=== PATIENT | female | born 1935 | race Caucasian/White ===

== ENCOUNTER 2017-07-18 15:11 | Inpatient (IN) | payer MEDICARE ==
[2017-07-18 15:17] VITALS: BMI 37.6
[2017-07-18] MEDS ORDERED: HumaLOG 300 UNITS/3 ML VIAL SC PRN (18:01)
[2017-07-18] MEDS ORDERED: Dextrose 5% in Water 1,000 ML IV PRN (18:01)
[2017-07-18] MEDS ORDERED: Dextrose 50% Abboject 50 ML SYRINGE IVP PRN (18:01)
[2017-07-18] MEDS ORDERED: PROVENTIL INHALER 6.7 G (200 INHALATIONS) INH PRN ×2 (18:23→19:48)
[2017-07-18] MEDS: HYDROcodone/Acetaminophen 10/325 mg Tablet PO PRN ×2 (19:14→23:43)
[2017-07-18] MEDS ORDERED: HYDROcodone/Acetaminophen 10/325 mg Tablet PO PRN (19:48)
[2017-07-18] MEDS ORDERED: traMADol HCl 50 MG TAB PO PRN (19:48)
[2017-07-18] MEDS ORDERED: Ondansetron ODT 4 MG TAB PO PRN (19:50)
[2017-07-18] MEDS ORDERED: Loperamide HCl 2 MG CAP PO PRN (19:50)
[2017-07-18] MEDS ORDERED: Bisacodyl 10 MG SUPP PR PRN (19:50)
[2017-07-18] MEDS: traZODone HCl 50 MG TAB PO SCH (20:38)
[2017-07-18] MEDS: Simvastatin 20 MG TAB PO SCH (20:38)
[2017-07-18] MEDS: Docusate 100 MG CAP PO SCH (20:38)
[2017-07-18] MEDS: Milk Of Magnesia 30 ML UDCUP PO PRN (20:38)
[2017-07-18] MEDS: traMADol HCl 50 MG TAB PO PRN (20:41)
[2017-07-18] MEDS ORDERED: Simvastatin 20 MG TAB PO SCH (21:00)
[2017-07-18] MEDS ORDERED: traZODone HCl 50 MG TAB PO SCH (21:00)
--- NOTE | 2017-07-19 02:31 | HP ---
DATE OF ADMISSION: HISTORY OF PRESENT ILLNESS: Ms. Le is a very pleasant 81-year-old white female, who is stat us post total right knee by Dr. Salmeron. The patient postoperatively has had significant problems with pain and weakness. She was transferred to [facility] for continued physical therap y, occupational therapy, and medical management of her multiple medical problems. SUBJECTIVE: The patient states she has no complaints except she just hurts. She states that Dr. Beti wang said that is going to hurt because she had a really bad knee and it started hurting before she go t it fixed. PAST MEDICAL HISTORY: 1. COPD. 2. Congestive heart failure. 3. Diabetes type 2. 4. GERD. 5. Hyperlipidemia. 6. Hypertension. 7. Osteoarthritis. 8. Eye problems. 9. Coronary artery disease. 10. AVR by Dr. De La Torre. PAST SURGICAL HISTORY: 1. Tonsillectomy. 2. Appendectomy. 3. in 1970. 4. Cataract surgery in 2007. 5. Left ear skin cancer in 2015. 6. Aortic valve replacement with cardiac stenting by Dr. De La Torre in 09/05/2016. ALLERGIES: Reveal the patient has no known drug allergies. PRESENT MEDICATIONS: Reveal the patient should be on: 1. Aspirin 325 one pill twice a day. 2. Verapamil 80 mg b.i.d. 3. Losartan 25 mg every day. 4. Furosemide 40 mg b.i.d. 5. Simvastatin 20 mg at bedtime. 6. CoQ10 of 50 daily. 7. Amaryl 2 mg once a day. 8. Meloxicam 15 mg daily. 9. Anoro Ellipta once a day. 10. Tramadol 50 mg 1 or 2 pills with Tylenol 500 q.6 hours. 11. Trazodone 50 mg at bedtime. 12. Omeprazole 20 mg daily. 13. Stool softeners p.r.n. 14. Multivitamin. 15. Iron. 16. Equate Allergy. FAMILY HISTORY: Reveals the patient's father at the age of 73 of prostate cancer, kidney probl ems, hypertension, and stroke. The patient's mother at the age of 75. She has congestive hear t failure and heart disease. Siblings had one at age 6464 years old, congestive heart failur e and coronary artery disease. Other had hypertension and heart disease. The patient has 3 sons an d 2 daughters. Sons are alive and healthy. One of the daughters has diabetes. SOCIAL HISTORY: Reveals the patient does not smoke, does not use any alcohol, no drugs. She drinks coffee and Coke every day. She is retired and . She has 3 sons and 2 daughters. She lives alone. She has 2 cats. She walks daily. REVIEW OF SYSTEMS: The patient denies fever, chills, sweats, weight change, headaches, but does com plain of significant right knee pain. Ear, nose and throat are negative for change in her hearing, cold, congestion, or runny nose. The patient's respiratory status is negative for cough, cold, neil estion, or wheezing. The patient's cardiovascular status is negative for swelling, chest pain, paro xysmal dyspnea, dyspnea on exertion, racing or irregular heartbeats. Gastrointestinal manrique, the pat ient is negative for nausea, vomiting, diarrhea, constipation, black, bloody or tarry stools. Genit ourinary, the patient denies nocturia, hematuria, dysuria, urgency or frequency. Musculoskeletal wi se, the patient's incision looks good. She has significant right-sided knee pain, but that is posto p. The patient denies any rashes, skin lesions or jaundice. PHYSICAL EXAMINATION: GENERAL: This is a well-developed, well-nourished, slightly obese white female, in no apparent dist ress at this time. HEENT: Reveals normocephalic, nontraumatic cranium. Pupils are equally round and reactive. Extrao cular movements intact. Nose and throat are slightly dry. NECK: Supple, without masses, nodes or bruits. CHEST: Clear to auscultation. A 1/6 systolic ejection murmur is noted. ABDOMEN: Obese, soft, nontender, without organomegaly. Normal bowel sounds are noted in all 4 quad rants. No rebound or guarding is noted. GENITOURINARY: Deferred. EXTREMITIES: Reveal no clubbing, cyanosis with right knee slightly swelling and now bandaged. The patient also has right shoulder pain noted to be not rotator cuff. ASSESSMENT: 1. Status post total right knee by Dr. Salmeron. 2. Diabetes type 2. 3. History of congestive heart failure. 4. Chronic obstructive pulmonary disease. 5. Gastroesophageal reflux disease. 6. Hypertension. 7. Hyperlipidemia. 8. Osteoarthritis. 9. Coronary artery disease. 10. Aortic valve replacement. PLAN: 1. Follow blood pressure closely. 2. Follow the patient's Accu-Cheks before meals and at bedtime. 3. Follow the patient closely for signs and symptoms of congestive heart failure. 4. Physical therapy and occupational therapy. 5. Pain management.
[2017-07-19] MEDS: HYDROcodone/Acetaminophen 10/325 mg Tablet PO PRN ×4 (05:18→21:58)
[2017-07-19] MEDS: Furosemide 40 MG TAB PO SCH ×2 (06:22→14:23)
[2017-07-19] MEDS: Ferrous Sulfate 325 MG TAB PO SCH (07:55)
[2017-07-19] MEDS: Glimepiride 2 MG TAB PO SCH (07:55)
[2017-07-19] MEDS: Aspirin 325 mg Enteric Coated Tablet PO SCH ×2 (07:55→16:13)
[2017-07-19] MEDS ORDERED: Glimepiride 2 MG TAB PO SCH (08:00)
[2017-07-19] MEDS: Losartan Potassium 25 MG TAB PO SCH (08:16)
[2017-07-19] MEDS: Loratadine 10 MG TAB PO SCH (08:16)
[2017-07-19] MEDS: Docusate 100 MG CAP PO SCH ×2 (08:16→21:58)
[2017-07-19] MEDS: Meloxicam 7.5 MG TAB PO SCH (08:16)
[2017-07-19] MEDS: [UNRECOGNIZED DRUG - OTHER] INH SCH (08:17)
[2017-07-19] MEDS: Ubidecarenone 50 MG CAP PO SCH (08:18)
[2017-07-19] MEDS: [UNRECOGNIZED DRUG - OTHER] PO SCH (08:18)
[2017-07-19] MEDS: traMADol HCl 50 MG TAB PO PRN ×2 (08:24→16:13)
[2017-07-19] MEDS ORDERED: IRON PO SCH (09:00)
[2017-07-19] MEDS ORDERED: DOCUSATE SODIUM PO SCH (09:00)
[2017-07-19] MEDS ORDERED: Non-Formulary Item 1 EACH (Omeprazole [Prilosec] 20 MG) PO SCH (09:00)
[2017-07-19] MEDS ORDERED: Furosemide 40 MG TAB PO SCH (09:00)
[2017-07-19] MEDS ORDERED: Non-Formulary Item 1 EACH (Umeclidinium Brm/Vilanterol Tr [Anoro Ellipta] 1 INH) IH SCH (09:00)
[2017-07-19] MEDS ORDERED: MELOXICAM 15 MG PO SCH (09:00)
[2017-07-19] MEDS ORDERED: [UNRECOGNIZED DRUG - OTHER] PO SCH (09:00)
[2017-07-19] MEDS ORDERED: Non-Formulary Item 1 EACH (Cetirizine Hcl [Zyrtec] 10 MG) PO SCH (09:00)
[2017-07-19] MEDS ORDERED: VERAPAMIL HCL PO SCH (09:00)
[2017-07-19] MEDS ORDERED: Ubidecarenone 50 MG CAP PO SCH (09:00)
[2017-07-19] MEDS ORDERED: MULTIVIT PO SCH (09:00)
[2017-07-19] MEDS ORDERED: Losartan Potassium 25 MG TAB PO SCH (09:00)
[2017-07-19] MEDS ORDERED: Docusate Sodium 100 MG/10 ML UDCUP PO SCH (09:00)
[2017-07-19] MEDS ORDERED: FERROUS SULFATE 142 MG PO SCH (09:00)
[2017-07-19] MEDS: Simvastatin 20 MG TAB PO SCH (21:57)
[2017-07-19] MEDS: traZODone HCl 50 MG TAB PO SCH (21:58)
--- NOTE | 2017-07-19 23:34 | PRG ---
DATE OF ADMISSION: 07/18/2017 DATE OF SERVICE: 07/19/2017 HISTORY OF PRESENT ILLNESS: Ms. Le is a very pleasant 81-year-old white female that had a t otal right knee done by Dr. Salmeron. Postoperatively, she had significant pain and weakness. She does have chronic pain in her legs and back, is on tramadol for that. She ended up being placed on Nor[place] o 3 times a day along with tramadol. The patient was stabilized and transferred to [facility] for physical therapy, occupational therapy, and medical management of multiple medical pr oblems. SUBJECTIVE: The patient states she is feeling better today. She did walk quite a bit probably 50 f eet. She has no complaints about the food here. PHYSICAL EXAMINATION: VITAL SIGNS: Reviewed blood pressure this morning 135/63, pulse 91, respirations 22, O2 sat 98%. GENERAL: This is a well-developed, well-nourished, obese white female in no apparent distress at th is time. HEENT: Reveals normocephalic, nontraumatic cranium. Pupils are equally round and reactive. Extrao cular movements are intact. Nose and throat are moist today. NECK: Supple, without masses, nodes or bruits. CHEST: Clear to auscultation. No rales, rhonchi, or wheezes are heard. No cough is noted. HEART: Reveals a regular rate and rhythm without murmurs, gallops or rubs. A 1/6 systolic ejection murmur is noted. ABDOMEN: Obese, soft, nontender, without organomegaly. Normal bowel sounds are noted in all 4 quad rants. No rebound or guarding is noted. : Deferred. EXTREMITIES: Reveal no clubbing, cyanosis, or edema. Patient's knee is still wrapped. Patient als o complains of right shoulder pain. LABORATORY DATA: Reveal fasting sugar this morning 79, before lunch 152, before supper 65. ASSESSMENT: 1. Total right knee by Dr. Salmeron. 2. Diabetes type 2, stable. 3. History of congestive heart failure. 4. Chronic obstructive pulmonary disease. 5. Gastroesophageal reflux disease. 6. Hypertension. 7. Hyperlipidemia. 8. Osteoarthritis. 9. Coronary artery disease. 10. Aortic valve replacement. 11. Generalized weakness. PLAN: 1. Follow the patient's Accu-Cheks a.c. and at bedtime. 2. Follow the patient's blood pressure closely. 3. Monitor the patient's signs and symptoms of congestive heart failure. 4. Continue physical therapy and occupational therapy. 5. Continue pain management. 6. Deep venous thrombosis prophylaxis. 7. Decubitus precautions. 8. Peptic ulcer prophylaxis.
[2017-07-20] MEDS: traMADol HCl 50 MG TAB PO PRN ×3 (02:43→22:03)
[2017-07-20] MEDS: Furosemide 40 MG TAB PO SCH ×2 (06:07→13:34)
[2017-07-20] MEDS: Ferrous Sulfate 325 MG TAB PO SCH (07:35)
[2017-07-20] MEDS: Aspirin 325 mg Enteric Coated Tablet PO SCH ×2 (07:35→17:32)
[2017-07-20] MEDS: HYDROcodone/Acetaminophen 10/325 mg Tablet PO PRN ×3 (07:35→17:39)
[2017-07-20] MEDS: Glimepiride 2 MG TAB PO SCH (07:35)
[2017-07-20] MEDS: Docusate 100 MG CAP PO SCH ×2 (08:13→22:02)
[2017-07-20] MEDS: Meloxicam 7.5 MG TAB PO SCH (08:13)
[2017-07-20] MEDS: Losartan Potassium 25 MG TAB PO SCH (08:13)
[2017-07-20] MEDS: Loratadine 10 MG TAB PO SCH (08:13)
[2017-07-20] MEDS: [UNRECOGNIZED DRUG - OTHER] PO SCH (08:15)
[2017-07-20] MEDS: Ubidecarenone 50 MG CAP PO SCH (08:15)
[2017-07-20] MEDS: [UNRECOGNIZED DRUG - OTHER] INH SCH (08:15)
[2017-07-20] MEDS: Simvastatin 20 MG TAB PO SCH (22:02)
[2017-07-20] MEDS: traZODone HCl 50 MG TAB PO SCH (22:03)
--- NOTE | 2017-07-20 22:32 | PRG ---
DATE OF SERVICE: 07/20/2017 DATE OF ADMISSION: 07/18/2017 Ms. Le is a very pleasant 81-year-old white female that had a total right knee done at [facility] by Dr. Salmeron. Postoperatively, she had significant weakness and pain. She was starte d on [place] 3 times a day along with tramadol and was transferred to [facility] for p hysical therapy, occupational therapy, and pain management at the swing bed system. SUBJECTIVE: The patient states she had a good day today. She states she walked a little bit. She continues to have quite a bit of pain, but it seems to be gradually getting better. PHYSICAL EXAMINATION: VITAL SIGNS: Reveal blood pressure is 134/61, pulse 77-80, respirations 18-20, O2 sat 97-98%. T-ma x is 98.3. GENERAL: This is a well-developed, well-nourished, slightly obese white female, in no apparent dist ress at this time. HEENT: Reveals normocephalic, nontraumatic cranium. Pupils are equally round and reactive. Extrao cular movements intact. Nose and throat are moist. NECK: Supple, without masses, nodes or bruits. CHEST: Clear to auscultation. Slightly distant. No rales, rhonchi, wheezes or cough is heard. CARDIOVASCULAR: Reveals a regular rate and rhythm without gallops or rubs. A 1/6 systolic ejection murmur is noted. ABDOMEN: Obese, soft, nontender, without organomegaly, normal bowel sounds are noted. No rebound o r guarding is noted. GENITOURINARY: Deferred. EXTREMITIES: Reveal no clubbing, cyanosis or edema. Patient's knee continued to be wrapped. She s tates that she is feeling better. Is not as irritated, is not as painful when she moves. She does have some pain still on her right shoulder. ASSESSMENT: 1. Total right knee done at [facility] by Dr. Salmeron. 2. Diabetes type 2, stable. 3. History of congestive heart failure. 4. Chronic obstructive pulmonary disease. 5. Gastroesophageal reflux disease. 6. Hypertension. 7. Hyperlipidemia. 8. Osteoarthritis. 9. Coronary artery disease. 10. Aortic valve replacement. 11. Generalized weakness. PLAN: 1. Follow the patient's blood pressure closely. 2. Monitor the patient's sugars with Accu-Cheks a.c. and at bedtime. 3. Monitor the patient for signs and symptoms of congestive heart failure. 4. Continue pain management. 5. Decubitus precautions. 6. Stress ulcer prophylaxis. 7. Deep venous thrombosis prophylaxis. 8. Pain management. 9. Continue physical therapy and occupational therapy.
[2017-07-21] MEDS: HYDROcodone/Acetaminophen 10/325 mg Tablet PO PRN ×4 (02:40→20:31)
[2017-07-21] MEDS: Furosemide 40 MG TAB PO SCH ×2 (05:46→14:28)
[2017-07-21] MEDS: traMADol HCl 50 MG TAB PO PRN ×2 (06:58→23:32)
[2017-07-21] MEDS: Aspirin 325 mg Enteric Coated Tablet PO SCH ×2 (07:38→17:20)
[2017-07-21] MEDS: Glimepiride 2 MG TAB PO SCH (07:38)
[2017-07-21] MEDS: Ferrous Sulfate 325 MG TAB PO SCH (07:38)
[2017-07-21] MEDS: Docusate 100 MG CAP PO SCH ×2 (08:37→20:31)
[2017-07-21] MEDS: Losartan Potassium 25 MG TAB PO SCH (08:37)
[2017-07-21] MEDS: Meloxicam 7.5 MG TAB PO SCH (08:38)
[2017-07-21] MEDS: [UNRECOGNIZED DRUG - OTHER] PO SCH (08:39)
[2017-07-21] MEDS: Ubidecarenone 50 MG CAP PO SCH (08:39)
[2017-07-21] MEDS: Loratadine 10 MG TAB PO SCH (08:39)
[2017-07-21] MEDS: Milk Of Magnesia 30 ML UDCUP PO PRN (08:40)
[2017-07-21] MEDS: [UNRECOGNIZED DRUG - OTHER] INH SCH (09:20)
[2017-07-21] MEDS: traZODone HCl 50 MG TAB PO SCH (20:31)
[2017-07-21] MEDS: Simvastatin 20 MG TAB PO SCH (20:31)
--- NOTE | 2017-07-22 01:22 | PRG ---
DATE OF SERVICE: 07/21/2017 HISTORY OF PRESENT ILLNESS: Ms. Le is a very pleasant 81-year-old white female, who had a t otal right knee done at [facility] by Dr. Salmeron. She complains of quite a bit of pain and w eakness and therefore she was transferred to [facility] for physical therapy, occupa tional therapy, and pain management in the swing bed system. SUBJECTIVE: The patient states she had a really good day today. She states she is walking a little bit and she walked around the nurses' station and to the nurses' station. She states she continues to have pain, but it is much improved. She is ready for physical therapy tomorrow. OBJECTIVE: VITAL SIGNS: Reveal blood pressure is 124/60, pulse 77 to 80, respirations 18 to 20, O2 sat 96% to 98%, T-max 98.4. GENERAL: This is a well-developed, well-nourished, slightly obese white female, in no apparent dist ress at this time. HEENT: Reveals normocephalic, nontraumatic cranium. Pupils are equally round and reactive. Extrao cular movements are intact. Nose and throat are slightly dry and clear. NECK: Supple, without masses, nodes or bruits. CHEST: Clear to auscultation. No rales, rhonchi or wheezes are heard. CARDIOVASCULAR: Reveals a regular rate and rhythm without murmurs, gallops or rubs. A 1/6 systolic ejection murmur is noted. ABDOMEN: Obese, soft, nontender, without organomegaly. Normal bowel sounds are noted. No rebound or guarding is noted. GENITOURINARY: Deferred. EXTREMITIES: Reveal right knee looks very good and slightly red, minimally warm, very good range of motion and not hurting her much at all. ASSESSMENT: 1. Total right knee done at [facility] by Dr. Salmeron. 2. Diabetes type 2, stable. 3. History of congestive heart failure. 4. Chronic obstructive pulmonary disease. 5. Gastroesophageal reflux disease. 6. Hypertension. 7. Hyperlipidemia. 8. Osteoarthritis. 9. Coronary artery disease. 10. History of aortic valve replacement. 11. Generalized weakness. PLAN: 1. Continue to follow the patient's blood pressure closely. 2. Monitor the patient's sugars with Accu-Cheks before meals and at bedtime. 3. Monitor the patient for signs and symptoms of congestive heart failure. 4. Continue pain management and wean as able. 5. Continue decubitus precautions. 6. Stress ulcer prophylaxis. 7. Deep venous thrombosis prophylaxis. 8. Pain management. 9. Continue physical therapy and occupational therapy.
[2017-07-22] MEDS: HYDROcodone/Acetaminophen 10/325 mg Tablet PO PRN ×3 (05:20→17:18)
[2017-07-22] MEDS: Furosemide 40 MG TAB PO SCH ×2 (05:20→14:33)
[2017-07-22] MEDS: Meloxicam 7.5 MG TAB PO SCH (08:22)
[2017-07-22] MEDS: Loratadine 10 MG TAB PO SCH (08:22)
[2017-07-22] MEDS: Docusate 100 MG CAP PO SCH ×2 (08:22→21:05)
[2017-07-22] MEDS: Ubidecarenone 50 MG CAP PO SCH (08:22)
[2017-07-22] MEDS: traMADol HCl 50 MG TAB PO PRN ×3 (08:23→21:04)
[2017-07-22] MEDS: Ferrous Sulfate 325 MG TAB PO SCH (08:23)
[2017-07-22] MEDS: Glimepiride 2 MG TAB PO SCH (08:23)
[2017-07-22] MEDS: Losartan Potassium 25 MG TAB PO SCH (08:23)
[2017-07-22] MEDS: Aspirin 325 mg Enteric Coated Tablet PO SCH ×2 (08:23→17:18)
--- NOTE | 2017-07-22 10:18 | PRG ---
DATE OF SERVICE: 07/22/2017 HISTORY OF PRESENT ILLNESS: Ms. Le is a very pleasant 81-year-old white female that had a t otal right knee done by Dr. Salmeron. She was transferred to [facility] for physical th erapy, occupational therapy, and pain management and swing bed system. SUBJECTIVE: The patient states she is doing well today. She started to get physical therapy. The nurse does complain that she hollers a lot when she had just a little bit of pain. She did walk lesa und the nurses station with a couple episodes of rest. Her balance is getting better and she is doi ng significantly better. OBJECTIVE: VITAL SIGNS: Today reveal blood pressure is 132/60, pulse 77 to 82, respirations 18-20, O2 sat 94%- 98% on room air, temperature max is 98.4. GENERAL: This is a well-developed, well-nourished, obese white female in no apparent distress at is time. HEENT: Reveals normocephalic, nontraumatic cranium. Pupils are equally round and reactive. Extrao cular movements intact. Nose and throat are slightly dry, but clear. NECK: Supple, without masses, nodes or bruits. CHEST: Clear to auscultation. No rales, rhonchi, wheezes or cough is heard. CARDIOVASCULAR: Heart reveals a regular rate and rhythm without gallops or rubs. There is a 1/6 sy stolic ejection murmur is still heard. ABDOMEN: Obese, soft, nontender, without organomegaly. Normal bowel sounds are noted in all 4 quad rants. No rebound or guarding is noted. GENITOURINARY: Deferred. EXTREMITIES: Reveal no clubbing, cyanosis or edema. The patient's right knee continues to look rula y good, it is not red, it is not hot, it is not draining, it is doing well. ASSESSMENT: 1. Total right knee postop by Dr. Salmeron at [facility]. 2. Diabetes type 2, stable. 3. History of congestive heart failure. 4. Chronic obstructive pulmonary disease. 5. Gastroesophageal reflux disease. 6. Hypertension. 7. Hyperlipidemia. 8. Osteoarthritis. 9. Coronary artery disease. 10. History of aortic valve replacement. 11. Generalized weakness. PLAN: 1. Continue to monitor the patient's blood pressure closely. 2. Continue to monitor the patient for signs and symptoms of congestive heart failure. 3. Continue to monitor the patient's sugars with Accu-Cheks a.c. and at bedtime. 4. Continue pain management, wean opioids is able. 5. Continue decubitus precautions. 6. Stress ulcer prophylaxis. 7. Deep venous thrombosis prophylaxis. 8. Pain management. 9. Continue physical therapy and occupational therapy.
[2017-07-22] MEDS: [UNRECOGNIZED DRUG - OTHER] INH SCH (10:51)
[2017-07-22] MEDS: [UNRECOGNIZED DRUG - OTHER] PO SCH (10:51)
[2017-07-22] MEDS: traZODone HCl 50 MG TAB PO SCH (21:05)
[2017-07-22] MEDS: Simvastatin 20 MG TAB PO SCH (21:05)
[2017-07-23] MEDS: Furosemide 40 MG TAB PO SCH ×2 (06:04→14:07)
[2017-07-23] MEDS: HYDROcodone/Acetaminophen 10/325 mg Tablet PO PRN ×4 (08:31→21:40)
[2017-07-23] MEDS: Losartan Potassium 25 MG TAB PO SCH (08:33)
[2017-07-23] MEDS: Glimepiride 2 MG TAB PO SCH (08:33)
[2017-07-23] MEDS: Ubidecarenone 50 MG CAP PO SCH (08:33)
[2017-07-23] MEDS: Aspirin 325 mg Enteric Coated Tablet PO SCH ×2 (08:34→18:29)
[2017-07-23] MEDS: Ferrous Sulfate 325 MG TAB PO SCH (08:34)
[2017-07-23] MEDS: Docusate 100 MG CAP PO SCH ×2 (08:34→21:40)
[2017-07-23] MEDS: Meloxicam 7.5 MG TAB PO SCH (08:34)
[2017-07-23] MEDS: Loratadine 10 MG TAB PO SCH (08:34)
[2017-07-23] MEDS: [UNRECOGNIZED DRUG - OTHER] PO SCH (08:39)
--- NOTE | 2017-07-23 10:17 | PRG ---
DATE OF SERVICE: 07/23/2017 DATE OF ADMISSION: 07/18/2017 HISTORY OF PRESENT ILLNESS: Ms. Le is a very pleasant 81-year-old white female that had a t otal knee done by Dr. Salmeron. She was transferred to [facility] to continue her thera py. Her main problem has been pain, it is gradually getting better. She is in the swing system her e and she will continue physical therapy and occupational therapy. SUBJECTIVE: The patient states she is doing better. Her knee hurts quite a bit when she first gets up. By the time she walked at nurse's station, the pain has gone away and she is a lot better. St ates her balance is getting better. She did walk around the nurse's station once but had to stop on ce to rest. PHYSICAL EXAMINATION: VITAL SIGNS: Reveal blood pressure this morning is 127/61, pulse 81-92, respirations 17-20, O2 sat 94%-97% on room air, T-max is 97.9. GENERAL: This is a well-developed, well-nourished, obese white female in no apparent distress at th is time. HEENT: Reveals normocephalic, nontraumatic cranium. Pupils are equally round and reactive. Extrao cular movements intact. Nose and throat are moist. NECK: Supple, without masses, nodes or bruits. CHEST: Clear to auscultation. No rales, rhonchi or wheezes are heard. HEART: Reveals a regular rate and rhythm without murmurs, gallops or rubs. A 1/6 systolic ejection murmur is heard. ABDOMEN: Obese, soft, and nontender. Normal bowel sounds are noted. No rebound or guarding is not ed. : Exam is deferred. EXTREMITIES: Reveal no clubbing, cyanosis or edema. The right knee continues to be slightly swolle n, but not red, not hot, and doing very well. IMPRESSION: 1. Total right knee. She is postop from Dr. Salmeron at [facility]. 2. History of congestive heart failure. 3. Diabetes type 2. 4. Chronic obstructive pulmonary disease. 5. Gastroesophageal reflux disease. 6. Hypertension. 7. Hyperlipidemia. 8. Osteoarthritis. 9. Coronary artery disease. 10. History of aortic valve replacement in the past. 11. Generalized weakness. PLAN: 1. Continue to monitor the patient for signs and symptoms of congestive heart failure. 2. Monitor the patient's sugars with Accu-Cheks a.c. and at bedtime. 3. Monitor the patient's blood pressure closely. 4. Continue pain management, but wean the opioids as able. 5. Continue decubitus precautions. 6. Continue DVT thrombosis prophylaxis. 7. Stress ulcer prophylaxis. 8. Pain management. 9. Continue physical therapy and occupational therapy.
[2017-07-23] MEDS: traMADol HCl 50 MG TAB PO PRN (12:15)
[2017-07-23] MEDS: traZODone HCl 50 MG TAB PO SCH (21:39)
[2017-07-23] MEDS: Simvastatin 20 MG TAB PO SCH (21:40)
[2017-07-24] MEDS: Furosemide 40 MG TAB PO SCH ×2 (05:53→15:38)
[2017-07-24] MEDS: Glimepiride 2 MG TAB PO SCH (07:30)
[2017-07-24] MEDS: Meloxicam 7.5 MG TAB PO SCH (08:11)
[2017-07-24] MEDS: Ubidecarenone 50 MG CAP PO SCH (08:11)
[2017-07-24] MEDS: Docusate 100 MG CAP PO SCH ×2 (08:11→21:06)
[2017-07-24] MEDS: Losartan Potassium 25 MG TAB PO SCH (08:12)
[2017-07-24] MEDS: Aspirin 325 mg Enteric Coated Tablet PO SCH ×2 (08:12→17:19)
[2017-07-24] MEDS: Loratadine 10 MG TAB PO SCH (08:13)
[2017-07-24] MEDS: [UNRECOGNIZED DRUG - OTHER] PO SCH (08:13)
[2017-07-24] MEDS: Ferrous Sulfate 325 MG TAB PO SCH (08:13)
[2017-07-24] MEDS: HYDROcodone/Acetaminophen 10/325 mg Tablet PO PRN ×3 (08:17→21:04)
[2017-07-24] MEDS ORDERED: ANORO ELLIPTA INHALER INH SCH (10:45)
[2017-07-24] MEDS: traMADol HCl 50 MG TAB PO PRN (11:27)
--- NOTE | 2017-07-24 13:50 | PRG ---
DATE OF SERVICE: 07/24/2017 HISTORY OF PRESENT ILLNESS: The patient is a 81-year-old, very pleasant, obese white female that webb d a total knee done by Dr. Salmeron. She was transferred to [facility] for physical the rapy and occupational therapy to increase her strength and stamina so she can walk when she goes surya e. SUBJECTIVE: The patient states she is doing very well. She walked around the nurses' station. She rested for a while, walked towards the outside, a little bit on the outside and came back and did a couple of steps. She has no complaints today. PHYSICAL EXAMINATION: VITAL SIGNS: Blood pressure is 128/63, pulse 80-82, respirations 20, O2 sat 96% on room air, temper ature 97.4. GENERAL: This is a well-developed, well-nourished, very pleasant white female in no apparent distre ss at this time. HEENT: Reveals normocephalic, nontraumatic cranium. Pupils are equally round and reactive. Extrao cular movements intact. Nose and throat are slightly dry. NECK: Supple, without masses, nodes or bruits. LUNGS: Chest clear to auscultation. No rales, rhonchi or wheezes are heard. CARDIOVASCULAR: Reveals a regular rate and rhythm without murmurs, gallops or rubs. There is a 1/6 systolic ejection murmur is noted. ABDOMEN: Obese, soft, nontender, without organomegaly. Normal bowel sounds are noted. No rebound or guarding is noted. GENITOURINARY: Deferred. EXTREMITIES: Reveal the right knee continues to be slightly swollen, not red, not hot, and doing ve ry well. She states it only hurts when she gets started and then after she walks it is much improve d. IMPRESSION: 1. Total right knee postop by Dr. Salmeron [facility]. 2. History of congestive heart failure. 3. Diabetes type 2. 4. Chronic obstructive pulmonary disease. 5. Gastroesophageal reflux disease. 6. Hypertension. 7. Hyperlipidemia. 8. Osteoarthritis. 9. History of aortic valve replacement in the past. 10. Coronary artery disease. 11. Generalized weakness. PLAN: 1. Continue to monitor the patient's sugars with Accu-Cheks a.c. and at bedtime. 2. Monitor the patient for signs and symptoms of congestive heart failure. 3. Monitor the patient's blood pressure closely. 4. Continue pain management. Wean opioids as able. 5. Continue decubitus precautions. 6. Continue deep venous thrombosis prophylaxis. 7. Continue stress ulcer prophylaxis. 8. Pain management. 9. Decubitus precautions. 10. Continue physical therapy and occupational therapy.
[2017-07-24] MEDS: Simvastatin 20 MG TAB PO SCH (21:06)
[2017-07-24] MEDS: traZODone HCl 50 MG TAB PO SCH (21:06)
[2017-07-25] MEDS: HYDROcodone/Acetaminophen 10/325 mg Tablet PO PRN ×3 (03:52→18:15)
[2017-07-25] MEDS: Furosemide 40 MG TAB PO SCH ×2 (05:56→12:39)
[2017-07-25] MEDS: ANORO ELLIPTA INHALER INH SCH (05:56)
[2017-07-25] MEDS: Glimepiride 2 MG TAB PO SCH (07:30)
[2017-07-25] MEDS: Aspirin 325 mg Enteric Coated Tablet PO SCH ×2 (08:31→17:35)
[2017-07-25] MEDS: Ferrous Sulfate 325 MG TAB PO SCH (08:31)
[2017-07-25] MEDS: Docusate 100 MG CAP PO SCH ×2 (08:32→20:37)
[2017-07-25] MEDS: Loratadine 10 MG TAB PO SCH (08:33)
[2017-07-25] MEDS: Losartan Potassium 25 MG TAB PO SCH (08:33)
[2017-07-25] MEDS: Meloxicam 7.5 MG TAB PO SCH (08:34)
[2017-07-25] MEDS: Ubidecarenone 50 MG CAP PO SCH (08:35)
[2017-07-25] MEDS: [UNRECOGNIZED DRUG - OTHER] PO SCH (08:39)
[2017-07-25] MEDS: traMADol HCl 50 MG TAB PO PRN (12:38)
--- NOTE | 2017-07-25 13:53 | PRG ---
DATE OF SERVICE: 07/25/2017 Ms. Le is a very pleasant 81-year-old obese white female that had a total knee done by Dr. Som carlin. She was transferred to [facility] for pain control, for physical therapy, occu pational therapy and to increase her strength and stamina. SUBJECTIVE: The patient states she is doing much better. She is walking around the nurse's station . She plans on going home tomorrow after her physical therapy after lunch. She has no complaints a nd she states she is doing very well. She will be going home to stay with her son and his . PHYSICAL EXAMINATION: VITAL SIGNS: Reveal blood pressure 161/72, pulse 84 to 86, respirations 18 to 20, O2 saturation 98% . T-max 97.4. GENERAL: This is a well-developed, well-nourished, obese white female in no apparent distress at th is time. HEENT: Reveals normocephalic, nontraumatic cranium. Pupils are equally round and reactive. Extrao cular movements intact. Nose and throat are slightly dry. NECK: Supple, without masses, nodes or bruits. CHEST: Clear to auscultation. No rales, rhonchi, wheezes or cough is heard. CARDIOVASCULAR: Reveals a regular rate and rhythm without murmurs, gallops or rubs. The patient do es have a 1/6 systolic ejection murmur which is sometimes noted, sometimes not. ABDOMEN: Obese, soft, nontender, without organomegaly. Normal bowel sounds are noted. No rebound or guarding is noted. : Deferred. EXTREMITIES: Reveal right knee, improving significantly. The patient has much less pain, it is not red, it is not hot, it is not draining, it is doing very well. She states it hurts after she has r ested long time and then she has to stretch it again. LABORATORY DATA: Reveals fasting blood sugar this morning was 91, before lunch 101. IMPRESSION: 1. Total right knee postop by Dr. Salmeron from [facility]. 2. History of diabetes type 2. 3. History of congestive heart failure. 4. Chronic obstructive pulmonary disease. 5. Gastroesophageal reflux. 6. Hypertension. 7. Hyperlipidemia. 8. Osteoarthritis. 9. History of aortic valve replacement in the past. 10. Coronary artery disease. 11. Generalized weakness. PLAN: 1. The patient will be ready for discharge tomorrow afternoon after lunch. 2. Continue to monitor patient Accu-Cheks a.c. and at bedtime at home. 3. Monitor the patient for signs and symptoms of congestive heart failure until then. 4. Monitor patient's blood pressure closely. 5. Continue pain management. 6. Wean opioids. 7. Continue decubitus precautions. 8. Continue DVT thrombosis prophylaxis. 9. Continue stress ulcer prophylaxis. 10. Pain management. 11. Continue physical therapy and occupational therapy.
[2017-07-25] MEDS: traZODone HCl 50 MG TAB PO SCH (20:37)
[2017-07-25] MEDS: Simvastatin 20 MG TAB PO SCH (20:37)
[2017-07-26] MEDS: traMADol HCl 50 MG TAB PO PRN ×2 (02:46→13:10)
[2017-07-26] MEDS: Furosemide 40 MG TAB PO SCH ×2 (05:10→13:08)
[2017-07-26] MEDS: HYDROcodone/Acetaminophen 10/325 mg Tablet PO PRN (08:42)
[2017-07-26] MEDS: ANORO ELLIPTA INHALER INH SCH (08:42)
[2017-07-26] MEDS: Ferrous Sulfate 325 MG TAB PO SCH (08:43)
[2017-07-26] MEDS: Aspirin 325 mg Enteric Coated Tablet PO SCH (08:43)
[2017-07-26] MEDS: Meloxicam 7.5 MG TAB PO SCH (08:43)
[2017-07-26] MEDS: Ubidecarenone 50 MG CAP PO SCH (08:43)
[2017-07-26] MEDS: Loratadine 10 MG TAB PO SCH (08:43)
[2017-07-26] MEDS: Losartan Potassium 25 MG TAB PO SCH (08:43)
[2017-07-26] MEDS: Docusate 100 MG CAP PO SCH (08:43)
[2017-07-26] MEDS: Glimepiride 2 MG TAB PO SCH (08:43)
[2017-07-26] MEDS: [UNRECOGNIZED DRUG - OTHER] PO SCH (08:44)
[2017-07-26 10:38] VITALS: BP 120/72; TEMP 97.4
--- NOTE | 2017-07-27 01:11 | DIS ---
DATE OF ADMISSION: 07/18/2017 DATE OF DISCHARGE: 07/26/2017 PATIENT OF: Donnie Lopez M.D. FINAL DIAGNOSES: 1. Status post right total knee by Dr. Salmeron. 2. Chronic obstructive pulmonary disease. 3. Diabetes type 2. 4. Congestive heart failure. 5. Coronary artery disease. 6. Aortic valve replacement, cardiac stenting. HOSPITAL COURSE: The patient is a very pleasant 81-year-old white female, who underwent right total knee by Dr. Reddy Salmeron, was transferred to [facility] on 07/18 for physical therapy, did we ll with therapy with no complications, progressed well until date of discharge, she was felt to be s table to be discharged home, much less pain, no erythema, warmth, and control of her pain with thera py. Her blood pressure on discharge was 120/72, temperature 97, pulse 90, respirations 18, O2 sats 97%. Accu-Cheks have been stable at 90-116. She will be followed up by her primary care physician, Dr. Lopez in [address] Reddy Salmeron in 1 week. She has her pain medications at home and all her prescriptions at home and will continue on these.
== END 2017-07-26 14:40 | disposition home or self-care (01) | DRG 948 ==
LOC: NAV ACUTE 15:11
PROVIDERS: ADMIT Family Medicine; ATTEND Family Medicine
DX: R53.1 Weakness (principal); J44.9 Chronic obstructive pulmonary disease, unspecified; I11.0 Hypertensive heart disease with heart failure; I50.9 Heart failure, unspecified; Z96.651 Presence of right artificial knee joint; E11.9 Type 2 diabetes mellitus without complications; K21.9 Gastro-esophageal reflux disease without esophagitis; I25.10 Atherosclerotic heart disease of native coronary artery without angina pectoris; E78.5 Hyperlipidemia, unspecified; M19.90 Unspecified osteoarthritis, unspecified site; Z95.2 Presence of prosthetic heart valve; Z95.5 Presence of coronary angioplasty implant and graft
CPT/HCPCS: 36416

== ENCOUNTER 2019-07-28 09:58 | Outpatient (CLI) | payer MEDICARE ==
--- NOTE | 2019-07-28 11:03 | RAD ---
LUMBAR SPINE THREE VIEWS: HISTORY: Low back pain. Sciatica. FINDINGS: Degenerative changes are present. No acute fracture or subluxation is identified. Endplate changes at the L2-L3 level are new since MRI of 05/15/2011. Since the possibility of diskitis osteomyelitis cannot be excluded evaluation with MRI (with and without contrast)and ESR would be hel pful. CODE T POS: OFF
--- NOTE | 2019-07-28 11:04 | RAD ---
RIGHT HIP 2 VIEWS: Date: 07/28/19 HISTORY: Right hip pain, back pain. FINDINGS/IMPRESSION: Mild degenerative changes are present. No fracture, dislocation, or bony destruction is identified. POS: OFF
== END 2019-07-28 09:59 | disposition home or self-care (01) ==
LOC: NAV RAD 09:58
PROVIDERS: ATTEND Family Medicine
DX: M54.5 Low back pain (principal); M16.11 Unilateral primary osteoarthritis, right hip
CPT/HCPCS: 72100

== ENCOUNTER 2019-12-25 17:31 | Inpatient (IN) | payer MEDICARE ==
[2019-12-25] MEDS ORDERED: Docusate 100 MG CAP PO PRN (18:13)
[2019-12-25] MEDS ORDERED: Ventolin HFA Inhaler 60 PUFF INHALER INH PRN (18:13)
[2019-12-25] MEDS ORDERED: Loperamide HCl 2 MG CAP PO PRN (19:17)
[2019-12-25] MEDS ORDERED: Mag-Al Plus 1200 MG/1200 MG/120 MG/30 ML UDCUP PO PRN (19:17)
[2019-12-25] MEDS ORDERED: Milk Of Magnesia 30 ML UDCUP PO PRN (19:17)
[2019-12-25] MEDS ORDERED: Artificial Tear Sol 15 ML BOT EA EYE PRN (19:17)
[2019-12-25] MEDS ORDERED: Polyethylene Glycol 3350 17 GM Packet PO PRN (19:17)
[2019-12-25] MEDS ORDERED: ACETAMINOPHEN 650 MG PO SCH (21:00)
[2019-12-25] MEDS ORDERED: Non-Formulary Item 1 EACH (Brinzolamide/Brimonidine Tart [Simbrinza 1%/0.2% Ophth Susp] 1 EA EYE SCH (21:00)
[2019-12-25] MEDS: Amoxicillin/Potassium Clav 875 MG TAB PO SCH (21:47)
[2019-12-25] MEDS: Lisinopril 10 MG TAB PO SCH (21:48)
[2019-12-25] MEDS: Famotidine 20 MG TAB PO SCH (21:48)
[2019-12-25] MEDS: guaiFENesin ER 600 MG TAB PO SCH (21:48)
[2019-12-25] MEDS: Simvastatin 10 MG TAB PO SCH (21:48)
[2019-12-25] MEDS: Carvedilol 25 MG TAB PO SCH (21:48)
[2019-12-25] MEDS: Latanoprost 0.005% Ophth Soln 2.5 ml Bottle EA EYE SCH (21:52)
[2019-12-25] MEDS: Brimonidine Tartrate 0.2% Ophth Soln 5 ml Bottle EA EYE SCH (21:53)
[2019-12-25] MEDS: Mometasone/Formoterol 200/5 60 PUFF INH SCH (21:55)
[2019-12-25] MEDS: Dorzolamide HCl 2% Ophth Soln 10 ml Bottle EA EYE SCH (22:01)
[2019-12-25] MEDS: Acetaminophen 500 MG TAB PO PRN (22:02)
--- NOTE | 2019-12-26 00:40 | HP ---
The patient of Dr. Charanjit Lopez. HISTORY OF PRESENT ILLNESS: The patient is a very pleasant 84-year-old white female, who has fallen and suffered a right intertrochanteric hip fracture and is status post open reduction and internal fixation with only complications of some mild exacerbation of her chronic kidney disease, which has improved with albumin and fluids. She does complain of some hoarseness since her surgery, which she did not have previously, but has only mild shortness of breath and no chest pain. She does have a history of congestive heart failure and taken furosemide 40 mg twice daily and losartan 25 mg daily. She also has a history of hypertension, controlled on verapamil; hyperlipidemia, treated with simvastatin; diabetes, treated with glimepiride; and COPD, treated with Anoro Ellipta inhaler. She finally has a history of gastroesophageal reflux, on omeprazole. She states that she has some mild dyspnea on exertion, somewhat increased recently, but no chest pain or palpitations. PAST MEDICAL HISTORY: Remarkable for COPD, congestive heart failure, type 2 diabetes, gastroesophageal reflux, hyperlipidemia, hypertension, osteoarthritis. PAST SURGICAL HISTORY: Positive for tonsillectomy, appendectomy, cataract surgery, aortic valve replacement with cardiac stenting by Dr. De La Torre in 2016, and a right total knee replacement in 2017. ALLERGIES: SHE HAS NO KNOWN ALLERGIES. FAMILY MEDICAL HISTORY: Positive for hypertension and congestive heart failure. SOCIAL HISTORY: She is a nonsmoker, nondrinker. She is a , lives alone. MEDICATIONS: As above in the doses of verapamil 160 mg daily, furosemide 40 mg twice daily, simvastatin 20 daily, glimepiride two daily, omeprazole 20 daily, Anoro inhaler daily, and aspirin 81 daily. REVIEW OF SYSTEMS: HEENT: She denies any headaches, dizziness, change in vision or hearing, but she does have the above-mentioned hoarseness since surgery with no dysphagia. PULMONARY: She denies any cough, sputum production, pneumonia, asthma, or tuberculosis. CARDIOVASCULAR: She denies any chest pain, but does complain of some shortness of breath on exertion. She has been stable with no real change. She denies any wheezing or sputum production. GASTROINTESTINAL: She denies nausea, vomiting, diarrhea, constipation, or abdominal pain. GENITOURINARY: Denies dysuria, hematuria, or nocturia. MUSCULOSKELETAL: Has some pain in her right hip with site of open reduction and internal fixation. NEUROLOGIC: Denies localized numbness or weakness in arms or extremities. PHYSICAL EXAMINATION: GENERAL: The patient is an elderly obese white female, lying in bed, in no acute distress, oriented x3 and cooperative. VITAL SIGNS: Showed to have a blood pressure 141/71, O2 saturations 92% on room air, respirations 18, pulse 97, afebrile. HEENT: Pupils are equal, round, and reactive to light and accommodation. Sclerae anicteric. Conjunctivae pale. Oral mucous membranes well hydrated. NECK: Supple. There are no nodes or masses. JVP is not elevated. LUNGS: Show decreased breath sounds at bases, but no rales, rhonchi, rubs, or wheezes. CARDIAC: Showed regular rhythm. PMI in the fifth intercostal space, midclavicular line with an S4. No other gallops or murmurs. ABDOMEN: Obese and nontender with no masses or organomegaly. SKIN AND EXTREMITIES: Display no edema, clubbing, or cyanosis. There is a healing right lateral hip incision. NEUROLOGIC: Intact. LABORATORY DATA: Laboratories show white count 10,000, hematocrit 26, hemoglobin 8.5. Sodium 135; potassium 4.6; chloride 102; bicarb 24; BUN 33; creatinine 1.68, which is up from admission of 1.30, but down from peak of 1.94. BNP is 583 as of 2013 prior to her aortic valve surgery. Urinalysis shows 21 to 50 white cells, was within normal limits. ASSESSMENT: 1. An 84-year-old white female with a history of chronic obstructive pulmonary disease, congestive heart failure, aortic valve replacement, type 2 diabetes, hyperlipidemia, and hypertension, who is admitted to [facility] for continued PT postop open reduction and internal fixation of right hip. She has mild dyspnea on exertion, but no hypoxia. She has no cough, sputum production, or chest pain. 2. Type 2 diabetes, controlled to goal. 3. Obesity, limiting therapy. 4. Degenerative joint disease. PLAN: 1. Start PT and OT. 2. Renew all medicines. 3. Continue Accu-Cheks to monitor and titrate and control diabetes. 4. Pain relief as needed. 5. Continue to monitor for dyspnea or chest pain. Continue home medications. Job ID: [id number]
[2019-12-26 06:10] LABS: ALT (SGPT) 12 U/L (8-55); AST (SGOT) 23 U/L (5-34); Albumin 2.9 g/dL (3.4-4.8); Alkaline Phosphatase 59 U/L (40-110); Anion Gap 13 mmol/L (10-20); BUN (Urea Nitrogen) 36 mg/dL (9.8-20.1); Bilirubin, Total 0.5 mg/dL (0.2-1.2); Calc. Creatinine Clearance 44 mL/min (70-130); Calcium 8.9 mg/dL (7.8-10.44); Carbon Dioxide 23 mmol/L (23-31); Chloride 101 mmol/L (98-107); Estimated GFR-MDRD 29; Globulin 1.9 g/dL (2.4-3.5); Glucose 98 mg/dL (83-110); Potassium 4.7 mmol/L (3.5-5.1); Protein, Total 4.8 g/dL (6.0-8.3); Sodium 132 mmol/L (136-145)
[2019-12-26 06:13] LABS: Hemoglobin 6.7 g/dL (12.0-16.0); Mean Corpuscular HGB CONC 33.4 g/dL (32.0-36.0); Mean Corpuscular Hemoglobin 33.1 pg (27.0-31.0); Mean Corpuscular Volume 99.1 fL (78.0-98.0); Mean Platelet Volume 5.3 fL (7.4-10.4); Platelet Count 201 thou/uL (130-400); Red Blood Cell (RBC) Count 2.02 mill/uL (4.20-5.40); White Blood Cell (WBC) Count 7.4 thou/uL (4.8-10.8)
[2019-12-26 06:14] LABS: Anisocytosis SLIGHT = 6-15 cells (100X) (0-5/hpf); Band 9 % (5-11); Eosinophils 1 % (0-10); Lymphocytes 16 % (21-51); MDiff Complete? YES; Macrocytosis SLIGHT = 6-15 cells (100X) (0-5/hpf); Monocytes 6 % (0-10); Neutrophil 67 % (42-75); Platelet Morphology Comment Appears Adequate; Polychromasia SLIGHT = 2-3 cells (100X) (0-2/hpf)
[2019-12-26] MEDS: Mometasone/Formoterol 200/5 60 PUFF INH SCH ×2 (09:11→21:21)
[2019-12-26] MEDS: Famotidine 20 MG TAB PO SCH ×2 (09:12→21:19)
[2019-12-26] MEDS: Carvedilol 25 MG TAB PO SCH (09:12)
[2019-12-26] MEDS: guaiFENesin ER 600 MG TAB PO SCH ×2 (09:12→21:19)
[2019-12-26] MEDS: Folic Acid 1 MG TAB PO SCH (09:12)
[2019-12-26] MEDS: Ferrous Sulfate 325 MG TAB PO SCH ×2 (09:12→17:04)
[2019-12-26] MEDS: predniSONE 20 MG TAB PO SCH (09:13)
[2019-12-26] MEDS: Loratadine 10 MG TAB PO SCH (09:13)
[2019-12-26] MEDS: Tamsulosin HCl 0.4 MG CAP PO SCH (09:13)
[2019-12-26] MEDS: Finasteride 5 MG TAB PO SCH (09:13)
[2019-12-26] MEDS: Lisinopril 10 MG TAB PO SCH (09:13)
[2019-12-26] MEDS: Multivitamin W/ Minerals 1 TAB PO SCH (09:13)
[2019-12-26] MEDS: Clopidogrel Bisulfate 75 MG TAB PO SCH (09:13)
[2019-12-26] MEDS: Dorzolamide HCl 2% Ophth Soln 10 ml Bottle EA EYE SCH ×2 (09:14→21:21)
[2019-12-26] MEDS: Polyethylene Glycol 3350 17 GM Packet PO SCH (09:14)
[2019-12-26] MEDS: Brimonidine Tartrate 0.2% Ophth Soln 5 ml Bottle EA EYE SCH ×2 (09:15→21:20)
[2019-12-26] MEDS: Amoxicillin/Potassium Clav 875 MG TAB PO SCH ×2 (09:21→21:20)
[2019-12-26] MEDS: Acetaminophen 500 MG TAB PO PRN ×2 (09:22→19:30)
[2019-12-26] MEDS: Ondansetron ODT 4 MG TAB PO PRN ×2 (13:36→23:35)
[2019-12-26] MEDS ORDERED: Lisinopril 10 MG TAB PO SCH (18:15)
[2019-12-26] MEDS ORDERED: Carvedilol 25 MG TAB PO SCH (18:15)
[2019-12-26 20:21] LABS: #Lymphocytes 0.9 thou/uL (1.20-3.40); #Monocytes 0.4 thou/uL (0.11-0.59); #Neutrophils 9.3 thou/uL (1.40-6.50); %Basophils 0.3 % (0.0-1.0); %Eosinophils 0.2 % (0.0-10.0); %Lymphocytes 8.3 % (21.0-51.0); %Monocytes 3.4 % (0.0-10.0); %Neutrophils 87.8 % (42.0-75.0); Hemoglobin 9.1 g/dL (12.0-16.0); Mean Corpuscular HGB CONC 33.5 g/dL (32.0-36.0); Mean Corpuscular Volume 95.6 fL (78.0-98.0); Mean Platelet Volume 5.1 fL (7.4-10.4); Platelet Count 261 thou/uL (130-400); RBC Distribution Width 13.1 % (11.5-14.5); Red Blood Cell (RBC) Count 2.85 mill/uL (4.20-5.40); White Blood Cell (WBC) Count 10.5 thou/uL (4.8-10.8)
[2019-12-26] MEDS: Latanoprost 0.005% Ophth Soln 2.5 ml Bottle EA EYE SCH (21:20)
[2019-12-26] MEDS: Simvastatin 10 MG TAB PO SCH (21:20)
[2019-12-27] MEDS ORDERED: traMADol HCl 50 MG TAB PO PRN ×2 (06:00→20:43)
[2019-12-27] MEDS ORDERED: Carvedilol 25 MG TAB PO SCH (09:00)
[2019-12-27] MEDS ORDERED: Lisinopril 10 MG TAB PO SCH (09:00)
[2019-12-27] MEDS: Brimonidine Tartrate 0.2% Ophth Soln 5 ml Bottle EA EYE SCH (09:15)
[2019-12-27] MEDS: Amoxicillin/Potassium Clav 875 MG TAB PO SCH (09:15)
[2019-12-27] MEDS: predniSONE 20 MG TAB PO SCH (09:15)
[2019-12-27] MEDS: Ferrous Sulfate 325 MG TAB PO SCH ×2 (09:15→17:10)
[2019-12-27] MEDS: Tamsulosin HCl 0.4 MG CAP PO SCH (09:16)
[2019-12-27] MEDS: Multivitamin W/ Minerals 1 TAB PO SCH (09:16)
[2019-12-27] MEDS: Clopidogrel Bisulfate 75 MG TAB PO SCH (09:16)
[2019-12-27] MEDS: Dorzolamide HCl 2% Ophth Soln 10 ml Bottle EA EYE SCH (09:16)
[2019-12-27] MEDS: guaiFENesin ER 600 MG TAB PO SCH (09:16)
[2019-12-27] MEDS: Mometasone/Formoterol 200/5 60 PUFF INH SCH (09:17)
[2019-12-27] MEDS: Famotidine 20 MG TAB PO SCH (09:17)
[2019-12-27] MEDS: Loratadine 10 MG TAB PO SCH (09:17)
[2019-12-27] MEDS: Folic Acid 1 MG TAB PO SCH (09:17)
[2019-12-27] MEDS: Polyethylene Glycol 3350 17 GM Packet PO SCH (09:17)
[2019-12-27] MEDS: Finasteride 5 MG TAB PO SCH (09:17)
[2019-12-27] MEDS: Acetaminophen 500 MG TAB PO PRN (09:21)
[2019-12-27] MEDS ORDERED: Furosemide 20 MG TAB PO SCH ×3 (11:00→14:00)
[2019-12-27] MEDS: Ondansetron ODT 4 MG TAB PO PRN (19:43)
[2019-12-27] MEDS ORDERED: Acetaminophen 500 MG TAB PO PRN (20:44)
[2019-12-27] MEDS ORDERED: Ventolin HFA Inhaler 60 PUFF INHALER INH PRN (20:44)
[2019-12-27] MEDS ORDERED: Docusate Sodium 100 MG/10 ML UDCUP PO PRN (20:45)
[2019-12-27] MEDS ORDERED: Dextrose 50% Abboject 50 ML SYRINGE IVP PRN (20:51)
[2019-12-27] MEDS ORDERED: Dextrose 5% in Water 1,000 ML IV PRN (20:51)
[2019-12-27] MEDS ORDERED: Insulin Regular 300 UNITS/3 ML VIAL SC PRN (20:51)
[2019-12-27] MEDS ORDERED: Senokot S 8.6-50 MG TAB PO SCH (21:00)
[2019-12-27] MEDS ORDERED: ACETAMINOPHEN 1000 MG PO SCH (21:00)
[2019-12-27] MEDS ORDERED: Gabapentin 100 MG CAP PO SCH (21:00)
[2019-12-27] MEDS ORDERED: traZODone HCl 50 MG TAB PO SCH (21:00)
[2019-12-27] MEDS ORDERED: Furosemide 40 MG TAB PO SCH (21:00)
[2019-12-27] MEDS ORDERED: Aspirin Chewable 81 MG TAB PO SCH (21:00)
--- NOTE | 2019-12-27 21:17 | PRG ---
DATE OF SERVICE: 12/26/[address] Scott Lopez. SUBJECTIVE: The patient feels weak and has been found to have a guaiac-positive stool. She is having some edema. She also states that Tylenol is not helping her much with her pain. OBJECTIVE: VITAL SIGNS: Show blood pressure is 140/75, temperature is 98, pulse 107, respirations 20, and O2 sat is 94% on room air. LUNGS: Clear. CARDIAC: Displays regular rhythm. ABDOMEN: Obese, nontender. SKIN/EXTREMITIES: Show healing right lateral hip incision. LABORATORY DATA: White count 7400, hematocrit 20, and hemoglobin 6.7. Sodium 132, potassium 4.7, chloride 101, bicarb 23, BUN 36, creatinine 1.7, total bilirubin 0.5, protein 4.8, albumin 2.9, and globulin 1.9. ASSESSMENT: 1. Resolving open reduction and internal fixation of right hip fracture. 2. Type 2 diabetes, controlled to goal. 3. Obesity. 4. Degenerative joint disease. 5. Continue PT and OT on Saturday. 6. Continue Accu-Cheks to monitor and titrate and control diabetes. 7. Continue Tylenol, but add tramadol as needed for pain. 8. Transfuse 1 unit of packed cells as may be contributing to her weakness, and she does have guaiac-positive stool. We will also start her on pantoprazole for stress ulcer treatment and prophylaxis. Job ID: [id number]
--- NOTE | 2019-12-27 21:24 | PRG ---
DATE OF SERVICE: 12/27/[address] Charanjit Lopez. SUBJECTIVE: The patient feels persistent pain, but has not taken her tramadol. She is not having any shortness of breath, but still feels somewhat weak, although improved after transfusion. Stressed the patient need to take tramadol for pain relief. It was found by the nurses that she had been given entirely wrong medication reconciliation from [facility] and her medications have been changed back to the correct medication. Hopefully, she will feel better. OBJECTIVE: VITAL SIGNS: Shows temperature is 98, pulse 76, respirations 20, O2 saturations 95% on room air, and blood pressure 131/87. LUNGS: Clear. CARDIAC: Showed regular rhythm. ABDOMEN: Soft and nontender. SKIN/EXTREMITIES: Show healing right lateral hip incision and 1 to 2+ edema. ASSESSMENT: 1. Resolving right lateral hip incision. 2. Increased edema. We will restart on furosemide 40 twice daily. 3. Deconditioning. We will start therapy tomorrow. 4. Chronic obstructive pulmonary disease and we will start on nebulizers as needed. 5. Hypertension, controlled on Cozaar. PLAN: Stress tramadol and Tylenol as needed for pain. Restart prehospitalization medication. Repeat CBC, comprehensive metabolic profile in the a.m. Dr. Lopez back tonight. Job ID: [id number]
[2019-12-27] MEDS: Senokot S 8.6-50 MG TAB PO SCH (21:26)
[2019-12-27] MEDS: traMADol HCl 50 MG TAB PO PRN (21:27)
[2019-12-27] MEDS: traZODone HCl 50 MG TAB PO SCH (21:28)
[2019-12-27] MEDS: Gabapentin 100 MG CAP PO SCH (21:29)
[2019-12-27] MEDS: Aspirin 81 mg Enteric Coated Tablet PO SCH (21:29)
[2019-12-28 05:35] LABS: #Basophils 0.1 thou/uL (0.0-0.2); #Lymphocytes 1.1 thou/uL (1.20-3.40); #Monocytes 0.9 thou/uL (0.11-0.59); #Neutrophils 9.5 thou/uL (1.40-6.50); %Basophils 0.5 % (0.0-1.0); %Eosinophils 0.1 % (0.0-10.0); %Lymphocytes 9.6 % (21.0-51.0); %Monocytes 7.8 % (0.0-10.0); Hemoglobin 9.3 g/dL (12.0-16.0); Mean Corpuscular HGB CONC 33.1 g/dL (32.0-36.0); Mean Corpuscular Hemoglobin 32.2 pg (27.0-31.0); Platelet Count 305 thou/uL (130-400); RBC Distribution Width 12.9 % (11.5-14.5); Red Blood Cell (RBC) Count 2.88 mill/uL (4.20-5.40); White Blood Cell (WBC) Count 11.5 thou/uL (4.8-10.8)
[2019-12-28] MEDS: traMADol HCl 50 MG TAB PO PRN ×3 (08:48→21:30)
[2019-12-28] MEDS: Senokot S 8.6-50 MG TAB PO SCH ×2 (08:58→21:31)
[2019-12-28] MEDS: Aspirin 81 mg Enteric Coated Tablet PO SCH ×2 (08:58→21:31)
[2019-12-28] MEDS: Gabapentin 100 MG CAP PO SCH ×2 (08:58→21:31)
[2019-12-28] MEDS: Multivitamin W/ Minerals 1 TAB PO SCH (08:59)
[2019-12-28] MEDS: Ferrous Sulfate 325 MG TAB PO SCH (08:59)
[2019-12-28] MEDS: Verapamil 80 MG TAB PO SCH (09:00)
[2019-12-28] MEDS ORDERED: Multivitamin W/ Minerals 1 TAB PO SCH (09:00)
[2019-12-28] MEDS ORDERED: Verapamil 80 MG TAB PO SCH (09:00)
[2019-12-28] MEDS ORDERED: Losartan 25 MG TAB PO SCH (09:00)
[2019-12-28] MEDS ORDERED: Non-Formulary Item 1 EACH (Ferrous Sulfate [Ferrous Sulfate] 325 MG) PO SCH (09:00)
[2019-12-28] MEDS: Loratadine 10 MG TAB PO SCH (09:00)
[2019-12-28] MEDS: Losartan 25 MG TAB PO SCH (09:01)
[2019-12-28] MEDS: Furosemide 40 MG TAB PO SCH ×2 (09:02→13:47)
[2019-12-28] MEDS: Polyethylene Glycol 3350 17 GM Packet PO SCH (09:04)
[2019-12-28] MEDS: Acetaminophen 500 MG TAB PO PRN ×2 (13:43→21:31)
--- NOTE | 2019-12-28 19:27 | PRG ---
DATE OF SERVICE: 12/28/2019 SUBJECTIVE: Ms. Le is an 84-year-old white female, who fell and suffered a right intertrochanteric hip fracture. She was admitted to the hospital, had an open reduction and internal fixation done. She had some chronic kidney disease, which was mildly exacerbated. She eventually was stabilized and transferred to [facility] for physical therapy and occupational therapy. Unfortunately, when the patient was transferred here, her medication list that was sent was of another patient. The nurses did catch that and her medications were corrected. The patient states she is doing well, but her pain is not well managed. She states she typically takes tramadol 50 and Tylenol 1000 mg at home for her long-term arthritis pain. We did increase her tramadol to 100 mg along with Tylenol for her pain. OBJECTIVE: VITAL SIGNS: Today reveal, blood pressure this morning was elevated 172/80, pulse 73 to 82, respirations 18 to 20, O2 saturation 94% to 95% on room air, and T-max 98.6. GENERAL: This is a well-developed, well-nourished, somewhat obese white female , in no apparent distress at this time. HEENT: Normocephalic and nontraumatic cranium. The pupils are equally round and reactive. Extraocular movement is intact. Nose and throat are slightly dry. NECK: Supple without masses, nodes, or bruits. CHEST: Clear to auscultation. No rales, rhonchi, wheezes, or cough are noted. HEART: Reveals a regular rate and rhythm without murmurs, gallops, or rubs. ABDOMEN: Morbidly obese, soft, and nontender without organomegaly. Normal bowel sounds are noted. No rebound or guarding is noted. : Deferred. The patient does have one of the new urethral external female catheters. EXTREMITIES: Reveal no clubbing, cyanosis, or edema. Right lateral hip incision is healing well. NEUROLOGIC: She is basically intact. ASSESSMENT: 1. Chronic obstructive pulmonary disease. 2. Congestive heart failure. 3. Aortic valve replacement. 4. Diabetes, type 2. 5. Hypertension. 6. Hyperlipidemia. 7. Status post open reduction and internal fixation of right intertrochanteric hip fracture. 8. Degenerative joint disease. 9. Obesity. 10. Generalized weakness. PLAN: 1. Continue to monitor the patient's diabetes with Accu-Cheks before meals and at bedtime. 2. Continue to monitor the patient for signs and symptoms of congestive heart failure. 3. Monitor the patient's respiratory status. 4. Continue to monitor the patient's hypertension. 5. Stress ulcer prophylaxis. 6. Decubitus precautions. 7. DVT prophylaxis per Primary Service. 8. Physical therapy and occupational therapy. 9. Continue present medications. Job ID: [id number] MTDD
[2019-12-28] MEDS: traZODone HCl 50 MG TAB PO SCH (21:31)
[2019-12-29] MEDS: Acetaminophen 500 MG TAB PO PRN ×2 (08:08→21:32)
[2019-12-29] MEDS: traMADol HCl 50 MG TAB PO PRN ×2 (08:09→21:33)
[2019-12-29] MEDS: Verapamil 80 MG TAB PO SCH (08:10)
[2019-12-29] MEDS: Loratadine 10 MG TAB PO SCH (08:10)
[2019-12-29] MEDS: Ferrous Sulfate 325 MG TAB PO SCH (08:10)
[2019-12-29] MEDS: Aspirin 81 mg Enteric Coated Tablet PO SCH ×2 (08:10→21:34)
[2019-12-29] MEDS: Gabapentin 100 MG CAP PO SCH ×2 (08:11→21:34)
[2019-12-29] MEDS: Losartan 25 MG TAB PO SCH (08:11)
[2019-12-29] MEDS: Senokot S 8.6-50 MG TAB PO SCH ×2 (08:11→21:34)
[2019-12-29] MEDS: Multivitamin W/ Minerals 1 TAB PO SCH (08:11)
[2019-12-29] MEDS: Furosemide 40 MG TAB PO SCH ×2 (08:11→14:47)
[2019-12-29] MEDS: Polyethylene Glycol 3350 17 GM Packet PO SCH (08:16)
--- NOTE | 2019-12-29 10:38 | PRG ---
DATE OF SERVICE: 12/29/2019 SUBJECTIVE: Ms. Le is an 84-year-old white female, who fell and suffered a right intertrochanteric hip fracture, admitted to the hospital, had open reduction and internal fixation done. Noted to also have mildly exacerbation of her chronic kidney disease. She eventually was stabilized and transferred to inpatient rehab at [facility] for physical therapy and occupational therapy. The patient was seen this morning with occupational therapy, trying to stand. Pain is much better managed. She did get her family to bring her Anoro inhaler, which she typically takes once every morning. She will keep at her bedside because it was lost last year. OBJECTIVE: VITAL SIGNS: This morning reveal blood pressure 112/59, pulse 68 to 75, respirations 18 to 20, O2 saturation 95% to 97% on room air, T-max 97.8. GENERAL: On physical exam, this is a well-developed, well-nourished, very pleasant 84-year-old white female, trying hard with therapy. HEENT: Normocephalic and nontraumatic cranium. Pupils are equal, round, and reactive. Extraocular movements are intact. Nose and throat are dry, but clear. NECK: Supple without masses, nodes, or bruits. CHEST: Clear to auscultation. No rales, rhonchi, wheezes, or cough is heard. HEART: Reveals a regular rate and rhythm without murmurs, gallops, or rubs. ABDOMEN: Morbidly obese, soft, nontender without organomegaly. Normal bowel sounds noted in all 4 quadrants. No rebound or guarding is noted. : Deferred. EXTREMITIES: Reveal no clubbing, cyanosis, or edema. Right lateral hip incision healing well. NEUROLOGIC: Intact. ASSESSMENT: 1. Chronic obstructive pulmonary disease. 2. Congestive heart failure. 3. Aortic valve replacement. 4. Diabetes type 2. 5. Hypertension. 6. Hyperlipidemia. 7. Status post open reduction and internal fixation of right intertrochanteric hip fracture. 8. Degenerative joint disease. 9. Obesity. 10. Generalized weakness. PLAN: 1. Continue to monitor the patient's diabetes with Accu-Cheks a.c. and at bedtime. 2. Continue to monitor the patient for blood pressure and adjust medications as needed. 3. Continue to monitor the patient for signs and symptoms of congestive heart failure. 4. Monitor the patient's respiratory status. 5. Monitor the patient and continue her present medications. 6. Stress ulcer prophylaxis. 7. Decubitus precautions. 8. DVT prophylaxis. 9. Physical Therapy and Occupational Therapy. Job ID: [id number]
[2019-12-29] MEDS: traZODone HCl 50 MG TAB PO SCH (21:34)
[2019-12-30] MEDS: Senokot S 8.6-50 MG TAB PO SCH ×2 (08:58→20:58)
[2019-12-30] MEDS: Ferrous Sulfate 325 MG TAB PO SCH (08:58)
[2019-12-30] MEDS: Polyethylene Glycol 3350 17 GM Packet PO SCH (08:58)
[2019-12-30] MEDS: Gabapentin 100 MG CAP PO SCH ×2 (08:58→20:58)
[2019-12-30] MEDS: Aspirin 81 mg Enteric Coated Tablet PO SCH ×2 (08:59→20:58)
[2019-12-30] MEDS: Losartan 25 MG TAB PO SCH (08:59)
[2019-12-30] MEDS: Verapamil 80 MG TAB PO SCH (08:59)
[2019-12-30] MEDS: Multivitamin W/ Minerals 1 TAB PO SCH (08:59)
[2019-12-30] MEDS: Loratadine 10 MG TAB PO SCH (08:59)
[2019-12-30] MEDS: Acetaminophen 500 MG TAB PO PRN ×2 (08:59→18:11)
[2019-12-30] MEDS: Furosemide 40 MG TAB PO SCH ×2 (08:59→14:06)
[2019-12-30] MEDS: traMADol HCl 50 MG TAB PO PRN ×2 (09:04→21:02)
[2019-12-30] MEDS: ANORO INHALER INH SCH (09:07)
--- NOTE | 2019-12-30 15:21 | PRG ---
DATE OF SERVICE: 12/30/2019 SUBJECTIVE: Ms. Le is an 84-year-old white female, who fell and suffered a right intertrochanteric hip fracture. She had open reduction and fixation done, was stabilized, and transferred to [facility] for physical therapy and occupational therapy. The patient walked about 10 steps yesterday. This morning, she walked 20 steps and then rested and then 10 more steps. She continues to have pain, but is tolerating it fairly well. She states she is doing well and has no complaints today. OBJECTIVE: VITAL SIGNS: Today reveal blood pressure this morning was 114/60, pulse 72 to 73, respirations 18 to 20, O2 saturation 95% to 96% on room air, T-max 96.8. GENERAL: This is a well-developed, well-nourished, obese white female, in no apparent distress at this time. HEENT: Normocephalic and nontraumatic cranium. Pupils are equal, round, and reactive. Extraocular movements are intact. Nose and throat are slightly dry. NECK: Supple without masses, nodes, or bruits. CHEST: Clear to auscultation. No rales, rhonchi, wheezes, or cough is heard. HEART: Reveals a regular rate and rhythm without murmurs, gallops, or rubs. ABDOMEN: Morbidly obese, soft, nontender without organomegaly. Normal bowel sounds are heard in all 4 quadrants. No rebound or guarding is noted. : Deferred. EXTREMITIES: Reveal no clubbing or cyanosis. The patient has a right lateral hip incision, which has continued to slowly heal well, not draining. NEUROLOGIC: No focal discrepancies are noted. ASSESSMENT: 1. Chronic obstructive pulmonary disease. 2. Congestive heart failure. 3. Aortic valve replacement. 4. Diabetes, type 2. 5. Hypertension. 6. Hyperlipidemia. 7. Open reduction and internal fixation of right intertrochanteric hip fracture. 8. Degenerative joint disease. 9. Morbid obesity. 10. Generalized weakness. PLAN: 1. Continue to monitor the patient's blood pressure closely. Adjust medications as needed. 2. Continue to monitor the patient's diabetes with Accu-Cheks a.c. and h.s. 3. Continue to monitor the patient's signs and symptoms of CHF. 4. Monitor the patient's respiratory status. 5. Monitor the patient and continue present medications. 6. Stress ulcer prophylaxis. 7. Decubitus precautions. 8. DVT prophylaxis. 9. Continue physical therapy and occupational therapy. Job ID: [id number]
[2019-12-30] MEDS: traZODone HCl 50 MG TAB PO SCH (20:58)
[2019-12-31] MEDS: Polyethylene Glycol 3350 17 GM Packet PO SCH (08:10)
[2019-12-31] MEDS: Ferrous Sulfate 325 MG TAB PO SCH (08:10)
[2019-12-31] MEDS: Aspirin 81 mg Enteric Coated Tablet PO SCH ×2 (08:12→21:16)
[2019-12-31] MEDS: Senokot S 8.6-50 MG TAB PO SCH ×2 (08:12→21:16)
[2019-12-31] MEDS: Furosemide 40 MG TAB PO SCH ×2 (08:13→14:58)
[2019-12-31] MEDS: Gabapentin 100 MG CAP PO SCH ×2 (08:13→21:16)
[2019-12-31] MEDS: Multivitamin W/ Minerals 1 TAB PO SCH (08:14)
[2019-12-31] MEDS: Losartan 25 MG TAB PO SCH (08:14)
[2019-12-31] MEDS: Loratadine 10 MG TAB PO SCH (08:14)
[2019-12-31] MEDS: Verapamil 80 MG TAB PO SCH (08:15)
[2019-12-31] MEDS: traMADol HCl 50 MG TAB PO PRN ×3 (08:15→22:46)
[2019-12-31] MEDS: ANORO INHALER INH SCH (08:39)
[2019-12-31] MEDS: Insulin Regular 300 UNITS/3 ML VIAL SC PRN (12:29)
[2019-12-31] MEDS: Acetaminophen 500 MG TAB PO PRN (15:51)
--- NOTE | 2019-12-31 18:33 | PRG ---
DATE OF SERVICE: 12/31/2019 SUBJECTIVE: Ms. Le is a very pleasant 84-year-old white female, who fell. She suffered a right intertrochanteric hip fracture, was taken to the surgical suite and had open reduction and internal fixation done by Dr. Garcia. She eventually was stabilized and transferred to [facility] for physical therapy and occupational therapy. The patient thinks that she walked about 30 steps yesterday in total. She continues to have pain, but states she seems to be tolerating it well. We will have to increase her tramadol to 100 mg with Tylenol 3 times a day. OBJECTIVE: VITAL SIGNS: Today reveal; blood pressure 127/61, pulse 70 to 96, respirations 18 to 20, O2 saturation 94% to 93% on room air, and T-max 97.8. GENERAL: This is a well-developed, well-nourished, very pleasant white female, in no apparent distress at this time. HEENT: Normocephalic and nontraumatic cranium. Pupils are equal, round, and reactive. Extraocular movements are intact. Nose and throat are dry, but clear. NECK: Supple without masses, nodes, or bruits. CHEST: Clear to auscultation. No rales, rhonchi, wheezes, or cough is heard. HEART: Reveals a regular rate and rhythm without murmurs, gallops, or rubs. ABDOMEN: Soft, morbidly obese, nontender without organomegaly. No rebound or guarding is noted. : Deferred. EXTREMITIES: Reveals no clubbing or cyanosis. The patient has right lateral hip incision, which has continued to heal. NEUROLOGIC: No focal discrepancies. Generalized weakness. ASSESSMENT: 1. Chronic obstructive pulmonary disease. 2. Open reduction and internal fixation right intertrochanteric hip fracture. 3. Congestive heart failure. 4. Aortic valve replacement in the distant past. 5. Diabetes type 2. 6. Hypertension. 7. Hyperlipidemia. 8. Degenerative joint disease. 9. Morbid obesity. 10. Generalized weakness. PLAN: 1. Continue physical therapy and occupational therapy. 2. Continue to monitor the patient's blood pressure closely and adjust medications as needed. 3. Continue to monitor the patient's diabetes with Accu-Cheks before meals and at bedtime. 4. Continue to monitor the patient's signs, symptoms of CHF. 5. Monitor the patient's respiratory status. 6. Continue with stress ulcer prophylaxis. 7. Decubitus precautions. 8. Continue present medicines. Job ID: [id number]
[2019-12-31] MEDS: traZODone HCl 50 MG TAB PO SCH (21:16)
[2020-01-01] MEDS: Polyethylene Glycol 3350 17 GM Packet PO SCH (08:36)
[2020-01-01] MEDS: Aspirin 81 mg Enteric Coated Tablet PO SCH ×2 (08:38→20:57)
[2020-01-01] MEDS: Gabapentin 100 MG CAP PO SCH ×2 (08:39→20:57)
[2020-01-01] MEDS: Verapamil 80 MG TAB PO SCH (08:39)
[2020-01-01] MEDS: Losartan 25 MG TAB PO SCH (08:39)
[2020-01-01] MEDS: Senokot S 8.6-50 MG TAB PO SCH ×2 (08:40→20:57)
[2020-01-01] MEDS: Loratadine 10 MG TAB PO SCH (08:41)
[2020-01-01] MEDS: Ferrous Sulfate 325 MG TAB PO SCH (08:41)
[2020-01-01] MEDS: Furosemide 40 MG TAB PO SCH ×2 (08:41→14:15)
[2020-01-01] MEDS: Multivitamin W/ Minerals 1 TAB PO SCH (08:41)
[2020-01-01] MEDS: Acetaminophen 500 MG TAB PO PRN ×2 (08:46→16:35)
[2020-01-01] MEDS: traMADol HCl 50 MG TAB PO PRN ×2 (08:46→16:35)
[2020-01-01] MEDS: ANORO INHALER INH SCH (09:46)
--- NOTE | 2020-01-01 15:27 | PRG ---
DATE OF SERVICE: 01/01/2020 SUBJECTIVE: Ms. Le is a very pleasant 84-year-old white female, who unfortunately fell at home and had a right intertrochanteric hip fracture. She was taken to the surgical suite by Dr. Garcia and had open reduction and internal fixation done. She was stabilized and transferred to [facility] for PT and OT. The patient states she walked 21 streps straight today, and her pain is gradually getting better. OBJECTIVE: VITAL SIGNS: Reveal blood pressure this morning 127/81, pulse 84, respirations 18, O2 saturation 96% on room air, T-max 98.1. GENERAL: This is a well-developed, well-nourished, obese, white female, in no apparent distress at this time. HEENT: Reveals normocephalic and nontraumatic cranium. Pupils are equal, round, and reactive. Extraocular movements are intact. Nose and throat are slightly dry. NECK: Supple without masses, nodes, or bruits. CHEST: Clear to auscultation. No rales, rhonchi, or wheezes are heard. HEART: Reveals a regular rate and rhythm without murmurs, gallops, or rubs. ABDOMEN: Soft and nontender without organomegaly. Normal bowel sounds are noted. No rebound or guarding is noted. : Deferred. EXTREMITIES: Reveal no clubbing, cyanosis, or edema. The patient has right lateral hip incision, which continues to slowly heal. NEUROLOGIC: No focal deficits. ASSESSMENT: 1. Right intertrochanteric hip fracture with open reduction and internal fixation. 2. Chronic obstructive pulmonary disease. 3. Congestive heart failure. 4. Aortic valve replacement in the distant past. 5. Diabetes, type 2. 6. Hypertension. 7. Hyperlipidemia. 8. Degenerative joint disease. 9. Morbid obesity. 10. Generalized weakness. PLAN: 1. Continue PT and OT. 2. Continue to monitor the patient's blood pressure closely and adjust medications. 3. Continue to monitor the patient's diabetes with Accu-Cheks a.c. and at bedtime. 4. Continue to monitor the patient for signs and symptoms of CHF. 5. Monitor the patient's respiratory status. 6. Continue stress ulcer prophylaxis. 7. Continue decubitus precautions. 8. Continue present medications. Job ID: [id number]
[2020-01-01] MEDS: traZODone HCl 50 MG TAB PO SCH (20:57)
[2020-01-02] MEDS: traMADol HCl 50 MG TAB PO PRN ×3 (03:23→21:06)
[2020-01-02] MEDS: Acetaminophen 500 MG TAB PO PRN ×3 (03:24→21:06)
[2020-01-02] MEDS: Multivitamin W/ Minerals 1 TAB PO SCH (09:27)
[2020-01-02] MEDS: Gabapentin 100 MG CAP PO SCH ×2 (09:27→21:06)
[2020-01-02] MEDS: Verapamil 80 MG TAB PO SCH (09:27)
[2020-01-02] MEDS: Loratadine 10 MG TAB PO SCH (09:27)
[2020-01-02] MEDS: Aspirin 81 mg Enteric Coated Tablet PO SCH ×2 (09:27→21:05)
[2020-01-02] MEDS: Ferrous Sulfate 325 MG TAB PO SCH (09:27)
[2020-01-02] MEDS: Losartan 25 MG TAB PO SCH (09:28)
[2020-01-02] MEDS: Furosemide 40 MG TAB PO SCH ×2 (09:28→14:43)
[2020-01-02] MEDS: Polyethylene Glycol 3350 17 GM Packet PO SCH (09:28)
[2020-01-02] MEDS: Senokot S 8.6-50 MG TAB PO SCH ×2 (09:32→21:08)
[2020-01-02] MEDS: ANORO INHALER INH SCH (09:34)
--- NOTE | 2020-01-02 11:09 | PRG ---
DATE OF SERVICE: 01/02/2020 SUBJECTIVE: Ms. Le is resting in bed and denies any complaints. She states that her pain is controlled. No family at bedside. OBJECTIVE: VITAL SIGNS: She is afebrile. Heart rate 58, respirations 15, oxygen saturation 94% on room air, and blood pressure 137/63. CARDIOVASCULAR SYSTEM: S1 and S2 plus. RESPIRATORY SYSTEM: Normal vesicular breath sounds. ABDOMEN: Soft, obese, and nontender. Bowel sounds heard in all quadrants. EXTREMITIES: Without cyanosis or clubbing. Trace leg edema. Right hip incision is healthy. CENTRAL NERVOUS SYSTEM: Awake and responsive. Generalized weakness. Otherwise, nonfocal. IMPRESSION: 1. Right hip fracture, status post open reduction and internal fixation. 2. Chronic obstructive pulmonary disease. 3. Diabetes mellitus type 2. 4. Hypertension. 5. Dyslipidemia. 6. Degenerative joint disease. PLAN: 1. Continue current medications. 2. An 1800-calorie heart healthy ADA diet. 3. Accu-Cheks with sliding scale coverage. 4. Monitor blood pressure and adjust medications as needed. 5. Orthopedic precautions and incision care. 6. DVT prophylaxis per Orthopedic recommendations. 7. Decubitus precautions. 8. Stress ulcer prophylaxis. 9. Physical therapy. 10. Routine laboratory values. Job ID: [id number]
[2020-01-02] MEDS: Insulin Regular 300 UNITS/3 ML VIAL SC PRN (17:30)
[2020-01-02] MEDS: traZODone HCl 50 MG TAB PO SCH (21:08)
[2020-01-03] MEDS: Verapamil 80 MG TAB PO SCH (08:12)
[2020-01-03] MEDS: Ferrous Sulfate 325 MG TAB PO SCH (08:13)
[2020-01-03] MEDS: Aspirin 81 mg Enteric Coated Tablet PO SCH ×2 (08:13→21:01)
[2020-01-03] MEDS: Losartan 25 MG TAB PO SCH (08:13)
[2020-01-03] MEDS: Senokot S 8.6-50 MG TAB PO SCH ×2 (08:13→21:00)
[2020-01-03] MEDS: Loratadine 10 MG TAB PO SCH (08:13)
[2020-01-03] MEDS: Gabapentin 100 MG CAP PO SCH ×2 (08:13→21:00)
[2020-01-03] MEDS: Furosemide 40 MG TAB PO SCH ×2 (08:13→12:43)
[2020-01-03] MEDS: Polyethylene Glycol 3350 17 GM Packet PO SCH (08:13)
[2020-01-03] MEDS: Multivitamin W/ Minerals 1 TAB PO SCH (08:13)
[2020-01-03] MEDS: ANORO INHALER INH SCH (08:15)
--- NOTE | 2020-01-03 12:49 | PRG ---
DATE OF SERVICE: 01/03/2020 SUBJECTIVE: Ms. Le is resting in bed and getting ready to have her lunch. She denies any questions or concerns. No family at bedside. OBJECTIVE: VITAL SIGNS: She is afebrile, heart rate 78, respirations 18, oxygen saturation 96% on room air, and blood pressure 118/59. CARDIOVASCULAR SYSTEM: S1 and S2 plus. RESPIRATORY SYSTEM: Normal vesicular breath sounds. ABDOMEN: Soft and nontender. Bowel sounds heard in all quadrants. EXTREMITIES: Without cyanosis or clubbing. CENTRAL NERVOUS SYSTEM: Improving deconditioning. IMPRESSION: 1. Right hip fracture status post open reduction and internal fixation. 2. Chronic obstructive pulmonary disease. 3. Diabetes mellitus, type 2. 4. Hypertension. 5. Dyslipidemia. 6. Degenerative joint disease. PLAN: 1. Continue current medications. 2. 1800-calorie heart healthy ADA diet. 3. Accu-Cheks with sliding scale coverage. 4. Orthopedic precautions and incision care. 5. DVT prophylaxis per Orthopedic recommendations. 6. Physical therapy. 7. Routine laboratory values. 8. Dr. John mott [facility]. Job ID: [id number]
[2020-01-03] MEDS: traMADol HCl 50 MG TAB PO PRN (16:45)
[2020-01-03] MEDS: Acetaminophen 500 MG TAB PO PRN (16:45)
[2020-01-03] MEDS: traZODone HCl 50 MG TAB PO SCH (21:00)
[2020-01-04] MEDS: traMADol HCl 50 MG TAB PO PRN ×3 (00:37→18:48)
[2020-01-04] MEDS: Acetaminophen 500 MG TAB PO PRN ×3 (00:38→18:48)
[2020-01-04] MEDS: Polyethylene Glycol 3350 17 GM Packet PO SCH (08:36)
[2020-01-04] MEDS: Verapamil 80 MG TAB PO SCH (08:41)
[2020-01-04] MEDS: Ferrous Sulfate 325 MG TAB PO SCH (08:42)
[2020-01-04] MEDS: Losartan 25 MG TAB PO SCH (08:42)
[2020-01-04] MEDS: Gabapentin 100 MG CAP PO SCH ×2 (08:43→20:43)
[2020-01-04] MEDS: Multivitamin W/ Minerals 1 TAB PO SCH (08:43)
[2020-01-04] MEDS: Furosemide 40 MG TAB PO SCH ×2 (08:43→14:14)
[2020-01-04] MEDS: Loratadine 10 MG TAB PO SCH (08:43)
[2020-01-04] MEDS: Senokot S 8.6-50 MG TAB PO SCH ×2 (08:44→20:43)
[2020-01-04] MEDS: ANORO INHALER INH SCH (08:45)
[2020-01-04] MEDS: Aspirin 81 mg Enteric Coated Tablet PO SCH ×2 (08:49→20:43)
--- NOTE | 2020-01-04 18:56 | PRG ---
DATE OF SERVICE: 01/04/2020 SUBJECTIVE: Ms. Le is an 84-year-old white female, who fell at home and had a right intertrochanteric hip fracture. Dr. Garcia did an open reduction and internal fixation at [facility]. She was stabilized and transferred to [facility] for PT and OT. The patient states she took 33 steps today and is doing slowly better. She does admit that her pain is better. OBJECTIVE: VITAL SIGNS: Today reveal blood pressure 139/60, pulse 82, respirations 18 to 20, O2 saturation 95% to 98% on room air, T-max 97.4. GENERAL: This is a well-developed, morbidly obese, white female, in no apparent distress at this time. HEENT: Reveals normocephalic and nontraumatic cranium. Pupils are equally round and reactive. Extraocular movements are intact. Nose and throat are clear. NECK: Supple without masses, nodes, or bruits. CHEST: Clear to auscultation. No rales, rhonchi, or wheezes are heard. HEART: Reveals a regular rate and rhythm without murmurs, gallops, or rubs. ABDOMEN: Soft, nontender, morbidly obese. Normal bowel sounds noted in all 4 quadrants. No rebound or guarding is noted. : Deferred. EXTREMITIES: Reveal no clubbing, cyanosis, or edema. Right lateral hip incision continues to slowly heal. NEUROLOGIC: No focal deficits. LABORATORY DATA: Sugars today reveal fasting 124 this morning, before lunch 160, before supper 137, before bedtime 142. ASSESSMENT: 1. Right intertrochanteric hip fracture with open reduction and internal fixation. 2. Chronic obstructive pulmonary disease. 3. Congestive heart failure. 4. Diabetes, type 2. 5. Hypertension. 6. Degenerative joint disease. 7. Morbid obesity. 8. Generalized weakness. PLAN: 1. Continue to monitor the patient's blood pressure closely and adjust medications. 2. Continue to monitor the patient's diabetes with Accu-Cheks a.c. and at bedtime. 3. Follow up the patient for signs and symptoms of CHF. 4. Monitor the patient's respiratory status. 5. Stress ulcer prophylaxis. 6. Decubitus precautions. 7. Continue present medications. 8. Continue physical therapy and occupational therapy. Job ID: [id number]
[2020-01-04] MEDS: traZODone HCl 50 MG TAB PO SCH (20:43)
[2020-01-05] MEDS: Verapamil 80 MG TAB PO SCH (08:41)
[2020-01-05] MEDS: Losartan 25 MG TAB PO SCH (08:41)
[2020-01-05] MEDS: Loratadine 10 MG TAB PO SCH (08:41)
[2020-01-05] MEDS: Aspirin 81 mg Enteric Coated Tablet PO SCH ×2 (08:41→20:22)
[2020-01-05] MEDS: Ferrous Sulfate 325 MG TAB PO SCH (08:41)
[2020-01-05] MEDS: Multivitamin W/ Minerals 1 TAB PO SCH (08:41)
[2020-01-05] MEDS: Gabapentin 100 MG CAP PO SCH ×2 (08:41→20:18)
[2020-01-05] MEDS: Furosemide 40 MG TAB PO SCH ×2 (08:41→14:02)
[2020-01-05] MEDS: Acetaminophen 500 MG TAB PO PRN ×2 (08:41→20:17)
[2020-01-05] MEDS: Senokot S 8.6-50 MG TAB PO SCH ×2 (08:42→20:17)
[2020-01-05] MEDS: Polyethylene Glycol 3350 17 GM Packet PO SCH (08:42)
[2020-01-05] MEDS: ANORO INHALER INH SCH (08:46)
[2020-01-05] MEDS: traZODone HCl 50 MG TAB PO SCH (20:18)
[2020-01-05] MEDS: traMADol HCl 50 MG TAB PO PRN (20:18)
--- NOTE | 2020-01-05 21:58 | PRG ---
DATE OF SERVICE: 01/05/2020 SUBJECTIVE: Ms. Le is an 84-year-old white female, who fell at home. She had a resultant right intertrochanteric hip fracture. Dr. Garcia saw the patient, took her to the surgical suite and did an ORIF. Postoperatively, she was stabilized and transferred to [facility] for PT and OT. The patient states she is slowly doing better and was able to walk 30+ steps this morning. OBJECTIVE: VITAL SIGNS: Today reveal blood pressure 104/53, pulse 82 to 88, respirations 18 to 20, O2 saturation 95% to 97% on room air, T-max 98.8. GENERAL: This is a well-developed, well-nourished, obese white female, in no apparent distress at this time. HEENT: Reveals normocephalic and nontraumatic cranium. Pupils are equal, round, and reactive. Extraocular movements are intact. Nose and throat are clear. NECK: Supple without masses, nodes, or bruits. CHEST: Clear to auscultation. No rales, rhonchi, or wheezes are heard. HEART: Reveals a regular rate and rhythm without murmurs, gallops, or rubs. ABDOMEN: Obese, soft, nontender without organomegaly. Normal bowel sounds noted in all 4 quadrants. No rebound or guarding is noted. : Deferred. EXTREMITIES: Reveal no clubbing, cyanosis, or edema. Right lateral hip incision is slowly healing. NEUROLOGIC: No focal deficits. LABORATORY DATA: No extra labs are done today. They are ordered for tomorrow. ASSESSMENT: 1. Right intertrochanteric hip fracture, status post open reduction and internal fixation. 2. Chronic obstructive pulmonary disease. 3. Congestive heart failure. 4. Diabetes type 2. 5. Hypertension. 6. Degenerative joint disease. 7. Morbid obesity. 8. Generalized weakness. PLAN: 1. Continue to monitor the patient's diabetes with Accu-Cheks before meals and at bedtime. 2. Continue to monitor the patient's blood pressure closely and adjust medications as needed. 3. Continue to monitor the patient for signs and symptoms of CHF. 4. Monitor the patient's respiratory status. 5. Stress ulcer prophylaxis. 6. Continue decubitus precautions. 7. Continue physical therapy and occupational therapy. 8. Continue present medications. Job ID: [id number]
[2020-01-06 05:42] LABS: #Basophils 0.1 thou/uL (0.0-0.2); #Eosinphils 0.2 thou/uL (0.0-0.7); #Lymphocytes 1.2 thou/uL (1.20-3.40); #Monocytes 0.9 thou/uL (0.11-0.59); #Neutrophils 5.6 thou/uL (1.40-6.50); %Basophils 0.9 % (0.0-1.0); %Eosinophils 2.2 % (0.0-10.0); %Lymphocytes 15.1 % (21.0-51.0); %Monocytes 10.9 % (0.0-10.0); %Neutrophils 70.9 % (42.0-75.0); Mean Corpuscular HGB CONC 32.9 g/dL (32.0-36.0); Mean Corpuscular Hemoglobin 32.1 pg (27.0-31.0); Mean Corpuscular Volume 97.4 fL (78.0-98.0); Platelet Count 322 thou/uL (130-400); RBC Distribution Width 13.4 % (11.5-14.5); White Blood Cell (WBC) Count 7.9 thou/uL (4.8-10.8)
[2020-01-06 06:01] LABS: ALT (SGPT) 18 U/L (8-55); AST (SGOT) 26 U/L (5-34); Albumin 3.2 g/dL (3.4-4.8); Alkaline Phosphatase 103 U/L (40-110); Anion Gap 14 mmol/L (10-20); BUN (Urea Nitrogen) 51 mg/dL (9.8-20.1); Bilirubin, Total 0.5 mg/dL (0.2-1.2); Calc. Creatinine Clearance 44 mL/min (70-130); Calcium 9.9 mg/dL (7.8-10.44); Carbon Dioxide 27 mmol/L (23-31); Chloride 98 mmol/L (98-107); Estimated GFR-MDRD 28; Globulin 2.3 g/dL (2.4-3.5); Glucose 111 mg/dL (83-110); Protein, Total 5.5 g/dL (6.0-8.3); Sodium 135 mmol/L (136-145)
[2020-01-06] MEDS: traMADol HCl 50 MG TAB PO PRN ×2 (08:34→17:01)
[2020-01-06] MEDS: Polyethylene Glycol 3350 17 GM Packet PO SCH (08:36)
[2020-01-06] MEDS: Senokot S 8.6-50 MG TAB PO SCH ×2 (08:36→21:16)
[2020-01-06] MEDS: Verapamil 80 MG TAB PO SCH (08:36)
[2020-01-06] MEDS: Multivitamin W/ Minerals 1 TAB PO SCH (08:36)
[2020-01-06] MEDS: Gabapentin 100 MG CAP PO SCH ×2 (08:36→21:16)
[2020-01-06] MEDS: Furosemide 40 MG TAB PO SCH ×2 (08:37→13:02)
[2020-01-06] MEDS: Losartan 25 MG TAB PO SCH (08:37)
[2020-01-06] MEDS: Ferrous Sulfate 325 MG TAB PO SCH (08:37)
[2020-01-06] MEDS: ANORO INHALER INH SCH (08:37)
[2020-01-06] MEDS: Aspirin 81 mg Enteric Coated Tablet PO SCH ×2 (08:37→21:16)
[2020-01-06] MEDS: Loratadine 10 MG TAB PO SCH (08:37)
[2020-01-06] MEDS ORDERED: Loperamide HCl 2 MG CAP PO SCH (10:15)
--- NOTE | 2020-01-06 11:56 | PRG ---
DATE OF SERVICE: 01/06/2020 SUBJECTIVE: Ms. Le is a well-developed 84-year-old white female, who fell at home and had a right intertrochanteric hip fracture. Dr. Garcia took the patient to surgical suite, did ORIF. Postoperatively, she was stable and transferred to [facility] because she lives by herself and is still very weak. She is here for PT and OT. The patient states she is doing better and walked 40 steps this morning. She states gradually her pain is slightly better every day. LABORATORY AND DIAGNOSTIC DATA: Her laboratories today are actually very good. Hemoglobin is 9.0; hematocrit is 27.3, which is good for her. Sodium 135, potassium 4.0, chloride 98, BUN is 51, creatinine is 1.72, and she has encouraged to drink liquids. OBJECTIVE: VITAL SIGNS: This morning reveal blood pressure 107/57, pulse 88 to 91, respirations 18 to 20, O2 saturation 95% to 97% on room air, T-max 98.8. GENERAL: This is a well-developed, somewhat obese white female, in no apparent distress at this time. HEENT: Normocephalic, nontraumatic cranium. Pupils are equal, round, and reactive. Extraocular movements are intact. Nose and throat are slightly dry. NECK: Supple without masses, nodes, or bruits. CHEST: Clear to auscultation. No rales, rhonchi, or wheezes are heard. HEART: Regular rate and rhythm without murmurs, gallops, or rubs. ABDOMEN: Soft, obese, nontender without organomegaly. Normal bowel sounds are noted. No rebound or guarding is noted. : Deferred. EXTREMITIES: No clubbing, cyanosis, or edema. Right lateral hip incision is healing. No focal deficits are noted. ASSESSMENT: 1. Right intertrochanteric hip fracture, status post open reduction and internal fixation. 2. Chronic obstructive pulmonary disease. 3. Congestive heart failure. 4. Diabetes type 2. 5. Hypertension. 6. Degenerative joint disease. 7. Morbid obesity. 8. Generalized weakness. PLAN: 1. Continue physical therapy and occupational therapy. 2. Continue to monitor the patient's diabetes with Accu-Cheks a.c. and at bedtime. 3. Continue to monitor the patient's blood pressure closely and adjust medications as needed. 4. Continue to monitor the patient for signs and symptoms of CHF. 5. Monitor the patient's respiratory status. 6. Stress ulcer prophylaxis. 7. Continue decubitus precautions. 8. Continue physical therapy and occupational therapy. 9. Continue present medications. Job ID: [id number]
[2020-01-06] MEDS: Loperamide HCl 2 MG CAP PO PRN ×2 (13:02→22:50)
[2020-01-06] MEDS: Acetaminophen 500 MG TAB PO PRN (17:00)
[2020-01-06] MEDS: traZODone HCl 50 MG TAB PO SCH (21:16)
[2020-01-07] MEDS: Ferrous Sulfate 325 MG TAB PO SCH (07:33)
[2020-01-07] MEDS: traMADol HCl 50 MG TAB PO PRN ×2 (07:34→18:27)
[2020-01-07] MEDS: Acetaminophen 500 MG TAB PO PRN ×2 (07:34→18:27)
[2020-01-07] MEDS: Loperamide HCl 2 MG CAP PO PRN ×2 (07:34→09:16)
[2020-01-07] MEDS: Aspirin 81 mg Enteric Coated Tablet PO SCH ×2 (09:13→21:19)
[2020-01-07] MEDS: Gabapentin 100 MG CAP PO SCH ×2 (09:13→21:19)
[2020-01-07] MEDS: Losartan 25 MG TAB PO SCH (09:13)
[2020-01-07] MEDS: Verapamil 80 MG TAB PO SCH (09:13)
[2020-01-07] MEDS: Multivitamin W/ Minerals 1 TAB PO SCH (09:14)
[2020-01-07] MEDS: Loratadine 10 MG TAB PO SCH (09:14)
[2020-01-07] MEDS: Furosemide 40 MG TAB PO SCH ×2 (09:14→14:14)
[2020-01-07] MEDS: Polyethylene Glycol 3350 17 GM Packet PO SCH (09:15)
[2020-01-07] MEDS: Senokot S 8.6-50 MG TAB PO SCH ×2 (09:15→21:19)
[2020-01-07] MEDS: ANORO INHALER INH SCH (09:15)
[2020-01-07] MEDS: Insulin Regular 300 UNITS/3 ML VIAL SC PRN (14:14)
--- NOTE | 2020-01-07 19:00 | PRG ---
DATE OF SERVICE: 01/07/2020 SUBJECTIVE: Ms. Le is an 84-year-old white female, who fell at home. She had a resultant right intertrochanteric hip fracture. Dr. Garcia took her to the surgical suite and she received ORIF. Postoperatively, she did well, was stabilized, and transferred to [facility] for physical therapy and occupational therapy. The patient states she is doing better and walked 42 steps today. Unfortunately, the patient's progress is very slow, but she is obese and unfortunately has a low pain threshold. OBJECTIVE: VITAL SIGNS: Today reveal blood pressure 116/85, pulse 85 to 86, respirations 18 to 20, O2 saturation 96% to 98% on room air, T-max 98.5. GENERAL: This is a well-developed, obese 84-year-old white female and states she is doing better every day in therapy. HEENT: Reveals normocephalic, nontraumatic cranium. Pupils are equal, round, and reactive. Extraocular movements are intact. Nose and throat are slightly dry, but clear. NECK: Supple without masses, nodes, or bruits. CHEST: Clear to auscultation. No rales, rhonchi, or wheezes are heard. HEART: Reveals a regular rate and rhythm without murmurs, gallops, or rubs. ABDOMEN: Soft, nontender without organomegaly. Normal bowel sounds noted in all 4 quadrants. No rebound or guarding is noted. GENITOURINARY: Deferred. EXTREMITIES: Reveal no clubbing, cyanosis, or edema. Right lateral hip incision is healing well. Again, no focal deficits are noted today. ASSESSMENT: 1. Right intertrochanteric hip fracture, status post open reduction and internal fixation. 2. Chronic obstructive pulmonary disease. 3. Congestive heart failure. 4. Diabetes type 2. 5. Hypertension. 6. Degenerative joint disease. 7. Morbid obesity. 8. Generalized weakness. PLAN: 1. Continue to monitor the patient's diabetes with Accu-Cheks a.c. and h.s. 2. Continue to monitor the patient's blood pressure closely. 3. Adjust medications as needed. 4. Continue to monitor the patient for signs and symptoms of CHF. 5. Monitor the patient's respiratory status. 6. Physical therapy and occupational therapy. 7. Decubitus precautions. 8. Continue present medicines. 9. Continue physical therapy and occupational therapy. 10. I did talk with the patient's daughter this morning who is surprised that the patient is actually doing as well as she is doing and has progressed as well. She has done because typically she is quite a complainer and procrastinator. She praised our physical therapy and occupational therapy department. Job ID: [id number]
[2020-01-07] MEDS: traZODone HCl 50 MG TAB PO SCH (21:19)
[2020-01-08] MEDS: Ferrous Sulfate 325 MG TAB PO SCH (08:58)
[2020-01-08] MEDS: Losartan 25 MG TAB PO SCH (08:58)
[2020-01-08] MEDS: Aspirin 81 mg Enteric Coated Tablet PO SCH ×2 (08:58→20:52)
[2020-01-08] MEDS: Furosemide 40 MG TAB PO SCH ×2 (08:59→13:54)
[2020-01-08] MEDS: Gabapentin 100 MG CAP PO SCH ×2 (08:59→20:52)
[2020-01-08] MEDS: Verapamil 80 MG TAB PO SCH (08:59)
[2020-01-08] MEDS: Loratadine 10 MG TAB PO SCH (08:59)
[2020-01-08] MEDS: Multivitamin W/ Minerals 1 TAB PO SCH (08:59)
[2020-01-08] MEDS: Acetaminophen 500 MG TAB PO PRN ×2 (08:59→20:52)
[2020-01-08] MEDS: ANORO INHALER INH SCH (09:00)
[2020-01-08] MEDS: Polyethylene Glycol 3350 17 GM Packet PO SCH (09:01)
[2020-01-08] MEDS: Senokot S 8.6-50 MG TAB PO SCH ×2 (09:01→20:52)
--- NOTE | 2020-01-08 13:30 | PRG ---
DATE OF SERVICE: 01/08/2020 SUBJECTIVE: Ms. Le is an 84-year-old white female. Unfortunately, she fell at home and had a resultant right intertrochanteric hip fracture. Dr. Garcia did ORIF on her. Postoperatively, she did well, had significant pain and weakness and therefore, she was transferred to [facility]. She was here for inpatient rehab for physical therapy and occupational therapy. The patient has been very slow about progressing, but today has done much better. She did take 101 steps including 2 different rest stops. The patient continues to slowly get better, but she lives by herself and has no help at home. OBJECTIVE: VITAL SIGNS: Today reveal blood pressure 117/53, pulse 18 to 20, O2 saturation 95% to 99% on room air, and T-max 97.7. GENERAL: This is a well-developed, well-nourished, slightly obese white female, in no apparent distress at this time. HEENT: Reveals normocephalic and nontraumatic cranium. Pupils are equal, round, and reactive. Extraocular movements are intact. Nose and throat are slightly dry. NECK: Supple without masses, nodes, or bruits. CHEST: Clear to auscultation. No rales, rhonchi, or wheezes are heard. HEART: Reveals a regular rate and rhythm without murmurs, gallops, or rubs. ABDOMEN: Soft and nontender without organomegaly. Normal bowel sounds are noted in all 4 quadrants. : Deferred. EXTREMITIES: Reveal no clubbing, cyanosis, or edema. NEUROLOGIC: No focal deficits. ASSESSMENT: 1. Right intertrochanteric hip fracture, status post open reduction and internal fixation by Dr. Garcia. 2. Chronic obstructive pulmonary disease. 3. Congestive heart failure. 4. Diabetes, type 2. 5. Hypertension. 6. Degenerative joint disease. 7. Morbidly obese. 8. Generalized weakness. PLAN: 1. Continue to monitor the patient's blood pressure closely. 2. Continue to monitor the patient's diabetes with Accu-Cheks a.c. and at bedtime. 3. Continue to monitor the patient for signs and symptoms of CHF. 4. Monitor the patient's respiratory status. 5. Adjust medications as needed. 6. Decubitus precautions. 7. Continue present medications. 8. Continue physical therapy and occupational therapy. Job ID: [id number]
[2020-01-08] MEDS: traZODone HCl 50 MG TAB PO SCH (20:52)
[2020-01-09] MEDS: Aspirin 81 mg Enteric Coated Tablet PO SCH ×2 (09:06→20:26)
[2020-01-09] MEDS: Verapamil 80 MG TAB PO SCH (09:06)
[2020-01-09] MEDS: Losartan 25 MG TAB PO SCH (09:06)
[2020-01-09] MEDS: Ferrous Sulfate 325 MG TAB PO SCH (09:07)
[2020-01-09] MEDS: Furosemide 40 MG TAB PO SCH ×2 (09:07→12:47)
[2020-01-09] MEDS: Loratadine 10 MG TAB PO SCH (09:07)
[2020-01-09] MEDS: Multivitamin W/ Minerals 1 TAB PO SCH (09:07)
[2020-01-09] MEDS: Gabapentin 100 MG CAP PO SCH ×2 (09:07→20:26)
[2020-01-09] MEDS: Senokot S 8.6-50 MG TAB PO SCH ×2 (09:07→20:26)
[2020-01-09] MEDS: ANORO INHALER INH SCH (09:08)
[2020-01-09] MEDS: Polyethylene Glycol 3350 17 GM Packet PO SCH (09:08)
[2020-01-09] MEDS: traMADol HCl 50 MG TAB PO PRN ×2 (09:11→18:44)
[2020-01-09] MEDS: Insulin Regular 300 UNITS/3 ML VIAL SC PRN (12:46)
[2020-01-09] MEDS: traZODone HCl 50 MG TAB PO SCH (20:26)
--- NOTE | 2020-01-10 07:11 | PRG ---
DATE OF SERVICE: 01/09/[address] Charanjit Lopez. SUBJECTIVE: The patient feels well, lying in the bed. No complaints. The nurses are somewhat concerned about some induration and possible erythema of her right hip incision, although the patient states that her tenderness had remained the same. OBJECTIVE: SKIN/EXTREMITIES: Right hip incision shows some minimal erythema with some mild serous drainage. No particular induration. VITAL SIGNS: Showed her to have a temperature 98.7, pulse 97, respirations 18, O2 sats 94% on room air, blood pressure 134/62. LUNGS: Clear. CARDIAC EXAMINATION: Shows regular rhythm. ABDOMEN: Soft, nontender LABORATORY DATA: No laboratories done since January 06. ASSESSMENT: 1. Resolving right intertrochanteric hip fracture, status post open reduction and internal fixation with some mild erythema and induration and drainage, and we will monitor and culture if drainage continues and we will obtain CBC. 2. Chronic obstructive pulmonary disease, stable. 3. Congestive heart failure, compensated. 4. Type 2 diabetes, well controlled with Accu-Cheks ranged from 133-168. 5. Hypertension, controlled to goal. 6. Degenerative joint disease, stable. 7. Morbid obesity, somewhat limiting therapy. PLAN: 1. Monitor wound, remove dressing. 2. Obtain CBC. 3. Obtain culture, if persistent drainage. Job ID: [id number]
[2020-01-10 07:15] LABS: #Eosinphils 0.2 thou/uL (0.0-0.7); #Lymphocytes 1.1 thou/uL (1.20-3.40); #Monocytes 0.7 thou/uL (0.11-0.59); #Neutrophils 3.9 thou/uL (1.40-6.50); %Basophils 0.7 % (0.0-1.0); %Eosinophils 3.2 % (0.0-10.0); %Lymphocytes 18.6 % (21.0-51.0); %Monocytes 12.2 % (0.0-10.0); %Neutrophils 65.2 % (42.0-75.0); Hemoglobin 9.3 g/dL (12.0-16.0); Mean Corpuscular HGB CONC 32.8 g/dL (32.0-36.0); Mean Corpuscular Hemoglobin 32.3 pg (27.0-31.0); Mean Corpuscular Volume 98.6 fL (78.0-98.0); Platelet Count 287 thou/uL (130-400); RBC Distribution Width 13.2 % (11.5-14.5); Red Blood Cell (RBC) Count 2.86 mill/uL (4.20-5.40)
[2020-01-10 07:23] LABS: ALT (SGPT) 22 U/L (8-55); AST (SGOT) 23 U/L (5-34); Albumin 3.2 g/dL (3.4-4.8); Alkaline Phosphatase 113 U/L (40-110); Anion Gap 14 mmol/L (10-20); BUN (Urea Nitrogen) 45 mg/dL (9.8-20.1); Bilirubin, Total 0.5 mg/dL (0.2-1.2); Calc. Creatinine Clearance 48 mL/min (70-130); Calcium 9.7 mg/dL (7.8-10.44); Carbon Dioxide 24 mmol/L (23-31); Chloride 101 mmol/L (98-107); Estimated GFR-MDRD 32; Globulin 2.2 g/dL (2.4-3.5); Glucose 110 mg/dL (83-110); Potassium 3.9 mmol/L (3.5-5.1); Protein, Total 5.4 g/dL (6.0-8.3); Sodium 135 mmol/L (136-145)
[2020-01-10] MEDS: traMADol HCl 50 MG TAB PO PRN ×2 (08:29→17:57)
[2020-01-10] MEDS: Verapamil 80 MG TAB PO SCH (08:30)
[2020-01-10] MEDS: Loratadine 10 MG TAB PO SCH (08:30)
[2020-01-10] MEDS: Furosemide 40 MG TAB PO SCH ×2 (08:30→14:13)
[2020-01-10] MEDS: Multivitamin W/ Minerals 1 TAB PO SCH (08:30)
[2020-01-10] MEDS: Loperamide HCl 2 MG CAP PO PRN (08:30)
[2020-01-10] MEDS: Losartan 25 MG TAB PO SCH (08:30)
[2020-01-10] MEDS: Aspirin 81 mg Enteric Coated Tablet PO SCH ×2 (08:30→21:14)
[2020-01-10] MEDS: ANORO INHALER INH SCH (08:30)
[2020-01-10] MEDS: Ferrous Sulfate 325 MG TAB PO SCH (08:30)
[2020-01-10] MEDS: Gabapentin 100 MG CAP PO SCH ×2 (08:30→21:14)
[2020-01-10] MEDS: Polyethylene Glycol 3350 17 GM Packet PO SCH (08:31)
[2020-01-10] MEDS: Senokot S 8.6-50 MG TAB PO SCH ×2 (08:31→21:14)
[2020-01-10] MEDS: traZODone HCl 50 MG TAB PO SCH (21:14)
[2020-01-10] MEDS: Acetaminophen 500 MG TAB PO PRN (21:18)
--- NOTE | 2020-01-10 21:23 | PRG ---
DATE OF SERVICE: 01/10/2020 SUBJECTIVE: The patient feels well. Some minimal tenderness in the right hip, but ready to do more therapy. OBJECTIVE: EXTREMITIES: Shows right lateral hip incision, continued to show [id number] erythema, possibly increasing serous drainage. VITAL SIGNS: Show a temperature is 98, pulse 99, respirations 18, O2 saturations 91% on room air, and blood pressure 113/58. LABORATORY DATA: White count 6000, hematocrit 28, hemoglobin 9.3. Accu-Cheks range 125 to 143. Sodium 135, potassium 3.9, chloride 101, bicarb 24, BUN 45, creatinine 1.56, alkaline phosphatase 113, total protein 5.4, albumin 3.2, globulin 2.2. ASSESSMENT: 1. Resolving right hip fracture, status post open reduction and internal fixation with persistent mild edema and erythema and some drainage, which has been cultured. 2. Compensated congestive heart failure. 3. Type 2 diabetes, controlled to goal. 4. Hypertension, controlled to goal. PLAN: 1. Await results of CBC and culture. 2. Continue to monitor wound. 3. Continue PT and OT tomorrow. 4. Continue Accu-Cheks to monitor and titrate and control diabetes. 5. Continue to monitor congestive heart failure. Job ID: [id number]
[2020-01-11] MEDS: traMADol HCl 50 MG TAB PO PRN ×2 (08:21→18:55)
[2020-01-11] MEDS: Acetaminophen 500 MG TAB PO PRN ×2 (08:22→18:55)
[2020-01-11] MEDS: Ferrous Sulfate 325 MG TAB PO SCH (08:23)
[2020-01-11] MEDS: Gabapentin 100 MG CAP PO SCH ×2 (08:29→21:19)
[2020-01-11] MEDS: Multivitamin W/ Minerals 1 TAB PO SCH (08:29)
[2020-01-11] MEDS: Senokot S 8.6-50 MG TAB PO SCH (08:29)
[2020-01-11] MEDS: Furosemide 40 MG TAB PO SCH ×2 (08:30→14:55)
[2020-01-11] MEDS: Losartan 25 MG TAB PO SCH (08:30)
[2020-01-11] MEDS: Loratadine 10 MG TAB PO SCH (08:30)
[2020-01-11] MEDS: Aspirin 81 mg Enteric Coated Tablet PO SCH ×2 (08:31→21:19)
[2020-01-11] MEDS: Verapamil 80 MG TAB PO SCH (08:31)
[2020-01-11] MEDS: ANORO INHALER INH SCH (08:33)
[2020-01-11] MEDS: Polyethylene Glycol 3350 17 GM Packet PO SCH (08:34)
[2020-01-11] MEDS ORDERED: Senokot S 8.6-50 MG TAB PO PRN (10:01)
[2020-01-11] MEDS: Insulin Regular 300 UNITS/3 ML VIAL SC PRN (12:28)
--- NOTE | 2020-01-11 20:25 | PRG ---
DATE OF SERVICE: 01/11/2020 SUBJECTIVE: Ms. Le is an 84-year-old obese white female, who fell at home. She had a right intertrochanteric hip fracture and was repaired by Dr. Garcia. Postoperatively, she did well and was transferred to [facility] for pain management, inpatient rehab for physical therapy and occupational therapy. The patient states she is doing well and states she took 162 steps this morning with resting couple times. She does complain of diarrhea, but she says it is better. It may be secondary to her omeprazole, so we will hold that at this time. OBJECTIVE: VITAL SIGNS: Today reveal blood pressure this morning 122/59, pulse 87 to 88, respirations 18, O2 saturation 94% on room air, and T-max 98.1. GENERAL: This is a well-developed, well-nourished, obese white female, in no apparent distress at this time. HEENT: Reveals normocephalic and nontraumatic cranium. Pupils are equally round and reactive. Extraocular movements are intact. Nose and throat are slightly dry. NECK: Supple without masses, nodes, or bruits. CHEST: Clear to auscultation. No rales, rhonchi, wheezes are heard. HEART: Reveals a regular rate and rhythm without murmurs, gallops, or rubs. ABDOMEN: Obese, soft, nontender without organomegaly. Normal bowel sounds noted in all 4 quadrants. No rebound or guarding is noted. : Deferred. EXTREMITIES: Reveal no clubbing, cyanosis, or edema. The patient's hip was evaluated today and we did unwrap it. It looks like it may have had a little bit of drainage but is not fresh. Over the weekend, the nurses were worried that was slightly red, but looks good today. ASSESSMENT: 1. Right intertrochanteric hip fracture, status post open reduction and internal fixation by Dr. Garcia. 2. Chronic obstructive pulmonary disease. 3. Congestive heart failure. 4. Diabetes type 2. 5. Hypertension. 6. Degenerative joint disease. 7. Morbidly obese. 8. Generalized weakness. PLAN: 1. Continue to monitor the patient's blood pressure closely. 2. Continue to monitor the patient's surgical incision on right hip. 3. Monitor the patient's diabetes with Accu-Cheks before meals and at bedtime. 4. Monitor the patient for signs and symptoms of congestive heart failure. 5. Monitor the patient's respiratory status. 6. Adjust medications as needed. 7. Decubitus precautions. 8. Continue present medications. 9. Continue physical therapy and occupational therapy. Job ID: [id number]
[2020-01-11] MEDS: traZODone HCl 50 MG TAB PO SCH (21:19)
[2020-01-12 05:48] LABS: #Eosinphils 0.2 thou/uL (0.0-0.7); #Lymphocytes 0.9 thou/uL (1.20-3.40); #Monocytes 0.7 thou/uL (0.11-0.59); #Neutrophils 3.1 thou/uL (1.40-6.50); %Basophils 0.8 % (0.0-1.0); %Eosinophils 3.5 % (0.0-10.0); %Lymphocytes 18.9 % (21.0-51.0); %Monocytes 14.8 % (0.0-10.0); Anion Gap 15 mmol/L (10-20); BUN (Urea Nitrogen) 43 mg/dL (9.8-20.1); Calc. Creatinine Clearance 49 mL/min (70-130); Calcium 9.5 mg/dL (7.8-10.44); Carbon Dioxide 23 mmol/L (23-31); Chloride 102 mmol/L (98-107); Estimated GFR-MDRD 32; Glucose 106 mg/dL (83-110); Hemoglobin 8.7 g/dL (12.0-16.0); Mean Corpuscular Hemoglobin 32.4 pg (27.0-31.0); Mean Platelet Volume 5.1 fL (7.4-10.4); Platelet Count 224 thou/uL (130-400); RBC Distribution Width 12.7 % (11.5-14.5); Red Blood Cell (RBC) Count 2.67 mill/uL (4.20-5.40); Sodium 136 mmol/L (136-145)
[2020-01-12] MEDS: Acetaminophen 500 MG TAB PO PRN ×3 (08:14→23:16)
[2020-01-12] MEDS: traMADol HCl 50 MG TAB PO PRN ×3 (08:15→23:17)
[2020-01-12] MEDS: Gabapentin 100 MG CAP PO SCH ×2 (08:15→21:02)
[2020-01-12] MEDS: Aspirin 81 mg Enteric Coated Tablet PO SCH ×2 (08:18→21:02)
[2020-01-12] MEDS: Multivitamin W/ Minerals 1 TAB PO SCH (08:18)
[2020-01-12] MEDS: Loratadine 10 MG TAB PO SCH (08:19)
[2020-01-12] MEDS: Ferrous Sulfate 325 MG TAB PO SCH (08:19)
[2020-01-12] MEDS: Furosemide 40 MG TAB PO SCH ×2 (08:19→14:52)
[2020-01-12] MEDS: Losartan 25 MG TAB PO SCH (08:20)
[2020-01-12] MEDS: Verapamil 80 MG TAB PO SCH (08:20)
[2020-01-12] MEDS: Polyethylene Glycol 3350 17 GM Packet PO SCH (08:21)
[2020-01-12] MEDS: ANORO INHALER INH SCH (08:22)
[2020-01-12] MEDS: traZODone HCl 50 MG TAB PO SCH (21:02)
--- NOTE | 2020-01-12 21:44 | PRG ---
DATE OF SERVICE: 01/12/2020 SUBJECTIVE: Ms. Le is an 84-year-old white female, who fell at home. She had a right intertrochanteric hip fracture. She was taken to the surgical suite by Dr. Garcia. Postoperatively, she did well and was transferred to [facility]. She lives by herself and has a very poor pain threshold. The patient states she is doing well and took lots of steps, but is depressed today because she is not sure if she can make it at home by herself. We did have a long discussion about getting her antidepressant. She is agreeable. We will start her on Lexapro 20 mg daily. OBJECTIVE: VITAL SIGNS: Today reveal blood pressure 130/60, pulse 97, respirations 18 to 20, O2 saturation 91% to 94% on room air, and T-max 98.1. PHYSICAL EXAMINATION: GENERAL: This is a well-developed, well-nourished, obese white female, in no apparent distress at this time. HEENT: Reveals normocephalic and nontraumatic cranium. Pupils are equal, round, and reactive. Extraocular movements are intact. Nose and throat are slightly dry. NECK: Supple without masses, nodes, or bruits. CHEST: Clear to auscultation. No rales, rhonchi, or wheezes are heard. HEART: Reveals a regular rate and rhythm without murmurs, gallops, or rubs. ABDOMEN: Obese, soft, nontender without organomegaly. Normal bowel sounds are noted in all 4 quadrants. No rebound or guarding is noted. : Deferred. EXTREMITIES: Reveal no clubbing, cyanosis, or edema. The patient's hip is evaluated and it still does not look very red. Over the weekend, the nurses were worried that it may look slightly infected. ASSESSMENT: 1. Right intertrochanteric hip fracture, status post open reduction and internal fixation by Dr. Garcia. 2. Chronic obstructive pulmonary disease. 3. Congestive heart failure. 4. Diabetes type 2. 5. Hypertension. 6. Degenerative joint disease. 7. Morbidly obese. 8. Generalized weakness. PLAN: 1. Continue present medications. 2. Continue to monitor the patient's blood pressure closely. 3. Continue to monitor the patient's surgical incision of the right hip. 4. Monitor the patient's diabetes with Accu-Cheks a.c. and at bedtime. 5. Continue to monitor the patient for signs and symptoms of CHF. 6. Monitor the patient's respiratory status. 7. Adjust medications as needed. 8. Decubitus precautions. 9. Continue present medications. 10. Continue physical therapy and occupational therapy. 11. Start Lexapro 20 mg daily. Job ID: [id number]
[2020-01-13] MEDS: Ferrous Sulfate 325 MG TAB PO SCH (08:19)
[2020-01-13] MEDS: Acetaminophen 500 MG TAB PO PRN (08:20)
[2020-01-13] MEDS: Multivitamin W/ Minerals 1 TAB PO SCH (08:21)
[2020-01-13] MEDS: Verapamil 80 MG TAB PO SCH (08:21)
[2020-01-13] MEDS: Gabapentin 100 MG CAP PO SCH ×2 (08:22→21:20)
[2020-01-13] MEDS: Aspirin 81 mg Enteric Coated Tablet PO SCH ×2 (08:22→21:20)
[2020-01-13] MEDS: Furosemide 40 MG TAB PO SCH ×2 (08:22→15:00)
[2020-01-13] MEDS: Loratadine 10 MG TAB PO SCH (08:22)
[2020-01-13] MEDS: Losartan 25 MG TAB PO SCH (08:22)
[2020-01-13] MEDS: traMADol HCl 50 MG TAB PO PRN ×2 (08:23→18:20)
[2020-01-13] MEDS: ANORO INHALER INH SCH (08:26)
[2020-01-13] MEDS: Polyethylene Glycol 3350 17 GM Packet PO SCH (08:27)
[2020-01-13] MEDS: Escitalopram Oxalate 20 mg Tablet PO SCH (09:59)
--- NOTE | 2020-01-13 16:40 | PRG ---
DATE OF SERVICE: 01/13/2020 SUBJECTIVE: Ms. Le is a very pleasant 84-year-old white female, who fell at home. She had a right intertrochanteric hip fracture. Taken to the surgical suite by Dr. Garcia. Postoperatively, she did well and was transferred to [facility] for physical therapy and occupational therapy. Unfortunately, the patient lives by herself. She has a very low poor pain threshold. She has actually been done fairly well in therapy and walked 180 steps today, but complained the whole time. She is complaining about her right knee, her right hip, her right shoulder, which has been chronic problems for ever. OBJECTIVE: VITAL SIGNS: Today reveal blood pressure this morning 126/59, pulse 80 to 85, respirations 18 to 20, O2 saturation on room air, and T-max 97.9. GENERAL: This is a well-developed, well-nourished, obese white female, in no apparent distress at this time. HEENT: Reveals normocephalic and nontraumatic cranium. Pupils equally round, and reactive. Extraocular movements are intact. Nose and throat are slightly dry. NECK: Supple without masses, nodes, or bruits. CHEST: Clear to auscultation. No rales, rhonchi, or wheezes are heard today. HEART: Reveals a regular rate and rhythm without murmurs, gallops, or rubs. ABDOMEN: Soft, nontender without organomegaly. Normal bowel sounds are noted. No rebound or guarding is noted. : Deferred. EXTREMITIES: Reveal no clubbing, cyanosis, or edema. The patient's hip is doing very well. Over the weekend, the nurses were worried that it may be slightly infected, but it continues to look fine. The patient has no pain there. She has pain mainly in her right knee, her right foot, and her right shoulder. She has seen Dr. Salmeron in the past for those and he says he could only inject them, but these are nonsurgical. ASSESSMENT: 1. Right intertrochanteric hip fracture, status post open reduction and internal fixation, done by Dr. Garcia. 2. Chronic obstructive pulmonary disease. 3. Congestive heart failure. 4. Diabetes type 2. 5. Hypertension. 6. Degenerative joint disease. 7. Morbid obesity. 8. Generalized weakness. PLAN: 1. Continue present medication. 2. Continue to monitor the patient's blood pressure closely. 3. Continue to monitor the patient's surgical incision site. 4. Monitor the patient's diabetes with Accu-Cheks before meals and at bedtime. 5. Continue to monitor the patient for signs and symptoms of CHF. 6. Monitor the patient's respiratory status. 7. Decubitus precautions. 8. Stress ulcer prophylaxis. 9. Continue physical therapy and occupational therapy. 10. We did start Lexapro yesterday for her anxiety and depressive disorder. Job ID: [id number]
[2020-01-13] MEDS: Atorvastatin Calcium 10 MG TAB PO SCH (21:20)
[2020-01-13] MEDS: traZODone HCl 50 MG TAB PO SCH (21:20)
[2020-01-13] MEDS ORDERED: guaiFENesin ER 600 MG TAB PO SCH ×2 (21:45)
[2020-01-13] MEDS: PSEUDOEPHEDRINE HCL PO SCH (21:50)
[2020-01-13] MEDS: GUAIFENESIN PO SCH (21:50)
[2020-01-14] MEDS: GUAIFENESIN PO SCH (06:56)
[2020-01-14] MEDS: PSEUDOEPHEDRINE HCL PO SCH (06:56)
[2020-01-14] MEDS: Multivitamin W/ Minerals 1 TAB PO SCH (08:51)
[2020-01-14] MEDS: Loratadine 10 MG TAB PO SCH (08:51)
[2020-01-14] MEDS: Losartan 25 MG TAB PO SCH (08:51)
[2020-01-14] MEDS: Verapamil 80 MG TAB PO SCH (08:51)
[2020-01-14] MEDS: Ubidecarenone 50 MG CAP PO SCH (08:51)
[2020-01-14] MEDS: Acetaminophen 500 MG TAB PO PRN ×2 (08:51→21:12)
[2020-01-14] MEDS: Ferrous Sulfate 325 MG TAB PO SCH (08:51)
[2020-01-14] MEDS: Glimepiride 2 MG TAB PO SCH (08:52)
[2020-01-14] MEDS: Furosemide 40 MG TAB PO SCH ×2 (08:52→14:33)
[2020-01-14] MEDS: Gabapentin 100 MG CAP PO SCH ×2 (08:52→21:11)
[2020-01-14] MEDS: Polyethylene Glycol 3350 17 GM Packet PO SCH (08:52)
[2020-01-14] MEDS: Meloxicam 7.5 MG TAB PO SCH (08:52)
[2020-01-14] MEDS: Escitalopram Oxalate 20 mg Tablet PO SCH (08:52)
[2020-01-14] MEDS: Aspirin 81 mg Enteric Coated Tablet PO SCH ×2 (08:52→21:11)
[2020-01-14] MEDS: ANORO INHALER INH SCH (08:54)
[2020-01-14] MEDS ORDERED: PSEUDOEPHEDRINE HCL PO SCH (09:00)
[2020-01-14] MEDS ORDERED: GUAIFENESIN PO SCH (09:00)
--- NOTE | 2020-01-14 11:03 | PRG ---
DATE OF SERVICE: 01/14/2020 SUBJECTIVE: Ms. Le is a well-developed, well-nourished 84-year-old obese white female, who fell at home. Unfortunately, she had a right intertrochanteric hip fracture. Dr. Garcia took the surgical suite and did an ORIF. Postoperatively, she did well, was transferred to [facility] for physical therapy and occupational therapy. The patient unfortunately lives by herself, has a very poor pain threshold, and actually has been very slow progressing, but she is much better. She took more than 180 steps yesterday, but has not had therapy yet this morning. She states yesterday she actually had a good day, but when I did talk with her yesterday, she complained about everything. OBJECTIVE: VITAL SIGNS: Today reveal blood pressure 123/60, pulse 83 to 88, respirations 18, O2 saturation 94% to 95% on room air, and T-max 96.4. GENERAL: This is a well-developed, well-nourished, obese white female, in no apparent distress at this time. HEENT: Normocephalic and nontraumatic cranium. Pupils are equal, round, and reactive. Extraocular movements are intact. Nose and throat are slightly dry. NECK: Supple without masses, nodes, or bruits. CHEST: Clear to auscultation. No rales, rhonchi, wheezes are heard. HEART: Reveals a regular rate and rhythm without murmurs, gallops, or rubs. ABDOMEN: Soft, obese, nontender without organomegaly. Normal bowel sounds are noted. No rebound or guarding is noted. : Deferred. EXTREMITIES: Reveal no clubbing, cyanosis, or edema. The patient's hip is doing well. The patient has no incisional pain. She does have right hip pain, right knee pain, right foot pain, and right shoulder pain. ASSESSMENT: 1. Right intertrochanteric hip fracture, status post open reduction and internal fixation done by Dr. Garcia. 2. Chronic obstructive pulmonary disease. 3. Congestive heart failure. 4. Diabetes, type 2. 5. Hypertension. 6. Degenerative joint disease. 7. Morbid obesity. 8. Generalized weakness. PLAN: 1. Continue to monitor the patient's blood pressure closely. 2. Continue to monitor the patient's diabetes with Accu-Cheks before meals and at bedtime. 3. Continue to monitor the patient's surgical incision site. 4. Monitor the patient for signs and symptoms of congestive heart failure. 5. Monitor the patient's respiratory status. 6. Continue present medications. 7. Decubitus precautions. 8. Stress ulcer prophylaxis. 9. Continue physical therapy and occupational therapy. 10. Continue Lexapro 20 mg daily. Job ID: [id number]
[2020-01-14] MEDS: traMADol HCl 50 MG TAB PO PRN ×2 (14:53→21:12)
[2020-01-14] MEDS: traZODone HCl 50 MG TAB PO SCH (21:11)
[2020-01-14] MEDS: Atorvastatin Calcium 10 MG TAB PO SCH (21:11)
[2020-01-15] MEDS: Ciprofloxacin 500 MG TAB PO SCH ×2 (06:00→20:38)
[2020-01-15] MEDS: traMADol HCl 50 MG TAB PO PRN ×2 (07:48→18:38)
[2020-01-15] MEDS: Ferrous Sulfate 325 MG TAB PO SCH (07:50)
[2020-01-15] MEDS: Glimepiride 2 MG TAB PO SCH (07:50)
[2020-01-15] MEDS: Acetaminophen 500 MG TAB PO PRN ×2 (07:50→18:37)
[2020-01-15] MEDS: Aspirin 81 mg Enteric Coated Tablet PO SCH ×2 (08:25→20:38)
[2020-01-15] MEDS: Furosemide 40 MG TAB PO SCH ×2 (08:25→14:48)
[2020-01-15] MEDS: Gabapentin 100 MG CAP PO SCH ×2 (08:25→20:38)
[2020-01-15] MEDS: Escitalopram Oxalate 20 mg Tablet PO SCH (08:25)
[2020-01-15] MEDS: Multivitamin W/ Minerals 1 TAB PO SCH (08:25)
[2020-01-15] MEDS: Ubidecarenone 50 MG CAP PO SCH (08:26)
[2020-01-15] MEDS: Losartan 25 MG TAB PO SCH (08:26)
[2020-01-15] MEDS: Loratadine 10 MG TAB PO SCH (08:27)
[2020-01-15] MEDS: Polyethylene Glycol 3350 17 GM Packet PO SCH (08:28)
[2020-01-15] MEDS: ANORO INHALER INH SCH (08:29)
[2020-01-15] MEDS: Meloxicam 7.5 MG TAB PO SCH (09:15)
[2020-01-15] MEDS: Verapamil 80 MG TAB PO SCH (09:55)
[2020-01-15] MEDS: traZODone HCl 50 MG TAB PO SCH (20:38)
[2020-01-15] MEDS: Atorvastatin Calcium 10 MG TAB PO SCH (20:38)
[2020-01-16] MEDS: Ciprofloxacin 500 MG TAB PO SCH ×2 (05:40→20:22)
[2020-01-16] MEDS: Meloxicam 7.5 MG TAB PO SCH (08:22)
[2020-01-16] MEDS: Acetaminophen 500 MG TAB PO PRN ×2 (08:22→20:22)
[2020-01-16] MEDS: Aspirin 81 mg Enteric Coated Tablet PO SCH ×2 (08:23→20:23)
[2020-01-16] MEDS: Ferrous Sulfate 325 MG TAB PO SCH (08:23)
[2020-01-16] MEDS: Loratadine 10 MG TAB PO SCH (08:23)
[2020-01-16] MEDS: Furosemide 40 MG TAB PO SCH ×2 (08:23→14:11)
[2020-01-16] MEDS: Glimepiride 2 MG TAB PO SCH (08:23)
[2020-01-16] MEDS: Verapamil 80 MG TAB PO SCH (08:23)
[2020-01-16] MEDS: Multivitamin W/ Minerals 1 TAB PO SCH (08:23)
[2020-01-16] MEDS: Ubidecarenone 50 MG CAP PO SCH (08:23)
[2020-01-16] MEDS: Escitalopram Oxalate 20 mg Tablet PO SCH (08:23)
[2020-01-16] MEDS: Losartan 25 MG TAB PO SCH (08:23)
[2020-01-16] MEDS: Gabapentin 100 MG CAP PO SCH ×2 (08:23→20:23)
[2020-01-16] MEDS: traMADol HCl 50 MG TAB PO PRN ×2 (08:24→20:22)
[2020-01-16] MEDS: Polyethylene Glycol 3350 17 GM Packet PO SCH (08:26)
[2020-01-16] MEDS: ANORO INHALER INH SCH (08:26)
--- NOTE | 2020-01-16 16:16 | PRG ---
DATE OF SERVICE: 01/16/2020 SUBJECTIVE: Ms. Le is doing well, up in her chair. Denies any complaints. Just finished her lunch. No family at bedside. OBJECTIVE: VITAL SIGNS: She is afebrile. Heart rate 80, respirations 18, oxygen saturation 96% on room air, blood pressure 130/68. CARDIOVASCULAR: S1 and S2 plus. RESPIRATORY: Normal vesicular breath sounds. ABDOMEN: Soft and nontender. Bowel sounds heard in all quadrants. EXTREMITIES: Without cyanosis or clubbing. CENTRAL NERVOUS SYSTEM: Improving deconditioning. SKIN: Right hip surgical site is growing Pseudomonas and Klebsiella. Both are sensitive to Cipro, and she is currently on Cipro. IMPRESSION: 1. Right hip fracture with possible surgical site infection, on Cipro. 2. Dyslipidemia. 3. Depression and anxiety. 4. Diabetes mellitus, type 2. 5. Hypertension. PLAN: 1. Continue current medications. 2. 1800-calorie heart-healthy ADA diet. 3. Accu-Cheks with sliding scale coverage. 4. DVT prophylaxis with PlexiPulses. 5. Decubitus precautions. 6. Stress ulcer prophylaxis. 7. Incision care. 8. Continue antibiotics. 9. Therapy. Job ID: [id number]
[2020-01-16] MEDS: Atorvastatin Calcium 10 MG TAB PO SCH (20:23)
[2020-01-16] MEDS: traZODone HCl 50 MG TAB PO SCH (20:23)
[2020-01-17] MEDS: Ciprofloxacin 500 MG TAB PO SCH ×2 (06:12→20:47)
[2020-01-17] MEDS: Aspirin 81 mg Enteric Coated Tablet PO SCH ×2 (08:08→20:49)
[2020-01-17] MEDS: Furosemide 40 MG TAB PO SCH ×2 (08:08→14:28)
[2020-01-17] MEDS: Escitalopram Oxalate 20 mg Tablet PO SCH (08:08)
[2020-01-17] MEDS: Multivitamin W/ Minerals 1 TAB PO SCH (08:08)
[2020-01-17] MEDS: Ferrous Sulfate 325 MG TAB PO SCH (08:09)
[2020-01-17] MEDS: Verapamil 80 MG TAB PO SCH (08:09)
[2020-01-17] MEDS: Ubidecarenone 50 MG CAP PO SCH (08:09)
[2020-01-17] MEDS: Loratadine 10 MG TAB PO SCH (08:10)
[2020-01-17] MEDS: Gabapentin 100 MG CAP PO SCH ×2 (08:10→20:47)
[2020-01-17] MEDS: Losartan 25 MG TAB PO SCH (08:10)
[2020-01-17] MEDS: Meloxicam 7.5 MG TAB PO SCH (08:10)
[2020-01-17] MEDS: Glimepiride 2 MG TAB PO SCH (08:10)
[2020-01-17] MEDS: traMADol HCl 50 MG TAB PO PRN ×2 (08:11→20:47)
[2020-01-17] MEDS: Acetaminophen 500 MG TAB PO PRN ×2 (08:11→20:48)
[2020-01-17] MEDS: ANORO INHALER INH SCH (08:17)
[2020-01-17] MEDS: Polyethylene Glycol 3350 17 GM Packet PO SCH (09:18)
--- NOTE | 2020-01-17 15:37 | PRG ---
DATE OF SERVICE: 01/17/2020 SUBJECTIVE: Ms. Le is doing the same. Denies any complaints. Resting comfortably. OBJECTIVE: VITAL SIGNS: She is afebrile. Heart rate 86, respirations 18, oxygen saturation 96% on room air, blood pressure 132/62. CARDIOVASCULAR: S1 and S2 plus. RESPIRATORY: Normal vesicular breath sounds. ABDOMEN: Soft, nontender. Bowel sounds heard in all quadrants. EXTREMITIES: Without cyanosis or clubbing. Hip incision with dressing. CENTRAL NERVOUS SYSTEM: Improving deconditioning. IMPRESSION: 1. Right hip fracture with possible surgical site infection. 2. Dyslipidemia. 3. Depression and anxiety. 4. Diabetes mellitus, type 2. 5. Hypertension. 6. Deconditioning. PLAN: 1. Continue current medications including antibiotics. 2. 1800-calorie heart healthy ADA diet. 3. Accu-Cheks with sliding scale coverage. 4. Orthopedic precautions and incision care. 5. DVT prophylaxis. 6. Decubitus precaution. 7. Routine laboratory values. 8. Physical therapy. Job ID: [id number]
[2020-01-17] MEDS: Atorvastatin Calcium 10 MG TAB PO SCH (20:48)
[2020-01-17] MEDS: traZODone HCl 50 MG TAB PO SCH (20:48)
[2020-01-18] MEDS: Ciprofloxacin 500 MG TAB PO SCH ×2 (05:40→21:19)
[2020-01-18] MEDS: Losartan 25 MG TAB PO SCH (08:23)
[2020-01-18] MEDS: Furosemide 40 MG TAB PO SCH ×2 (08:23→14:27)
[2020-01-18] MEDS: Polyethylene Glycol 3350 17 GM Packet PO SCH (08:23)
[2020-01-18] MEDS: Ferrous Sulfate 325 MG TAB PO SCH (08:23)
[2020-01-18] MEDS: Meloxicam 7.5 MG TAB PO SCH (08:24)
[2020-01-18] MEDS: Verapamil 80 MG TAB PO SCH (08:24)
[2020-01-18] MEDS: Aspirin 81 mg Enteric Coated Tablet PO SCH ×2 (08:24→21:14)
[2020-01-18] MEDS: Loratadine 10 MG TAB PO SCH (08:24)
[2020-01-18] MEDS: Escitalopram Oxalate 20 mg Tablet PO SCH (08:25)
[2020-01-18] MEDS: Glimepiride 2 MG TAB PO SCH (08:25)
[2020-01-18] MEDS: Gabapentin 100 MG CAP PO SCH ×2 (08:25→21:15)
[2020-01-18] MEDS: Multivitamin W/ Minerals 1 TAB PO SCH (08:25)
[2020-01-18] MEDS: Ubidecarenone 50 MG CAP PO SCH (08:31)
[2020-01-18] MEDS: traMADol HCl 50 MG TAB PO PRN (08:35)
[2020-01-18] MEDS: Acetaminophen 500 MG TAB PO PRN ×2 (08:35→21:20)
[2020-01-18] MEDS: ANORO INHALER INH SCH (08:37)
[2020-01-18] MEDS: Insulin Regular 300 UNITS/3 ML VIAL SC PRN (13:00)
--- NOTE | 2020-01-18 20:10 | PRG ---
DATE OF SERVICE: 01/18/2020 SUBJECTIVE: Ms. Le is a pleasant 84-year-old white female, who unfortunately fell at home. She had a right intertrochanteric hip fracture. Dr. Garcia took her to surgical suite, where he performed an ORIF. Postoperatively, the patient did well, transferred to [facility] for PT and OT. The patient states she is doing well, but she continues to have pain and quite a bit of pain on Saturday. Unfortunately, she has low pain threshold and has not a lot of motivation. She did take 180 steps last week and has not had physical therapy yet this morning. The patient states she is doing well. Does not like to think about going home yet. OBJECTIVE: VITAL SIGNS: Blood pressure this morning was slightly elevated at 178/75, pulse 75 to 88, respirations 18 to 20, O2 saturation 93% to 96% on room air, and T-max 95.4. GENERAL: This is a well-developed, well-nourished, very pleasant white female, in no apparent distress at this time. HEENT: Normocephalic and nontraumatic cranium. Pupils are equal, round, and reactive. Extraocular movements are intact. Nose and throat are slightly dry. NECK: Supple without masses, nodes, or bruits. CHEST: Clear to auscultation. No rales, rhonchi, or wheezes are heard. HEART: Regular rate and rhythm without murmurs, gallops, or rubs. ABDOMEN: Soft, nontender without organomegaly. Normal bowel sounds are noted in all 4 quadrants. No rebound or guarding is noted. : Deferred. EXTREMITIES: No clubbing, cyanosis, or edema. The patient's hip has no significant incisional pain or redness again. ASSESSMENT: 1. Right intertrochanteric hip fracture, status post open reduction and internal fixation done by Dr. Garcia. 2. Chronic obstructive pulmonary disease. 3. Congestive heart failure. 4. Diabetes, type 2. 5. Hypertension. 6. Degenerative joint disease. 7. Morbid obesity. 8. Generalized weakness. PLAN: 1. Continue to monitor the patient's blood pressure. 2. Continue to monitor the patient's diabetes with Accu-Cheks before meals and at bedtime. 3. Continue to monitor the patient's surgical incision. 4. Continue to monitor the patient for signs and symptoms of congestive heart failure. 5. Monitor the patient's respiratory status. 6. Continue present medications. 7. Decubitus precautions. 8. Stress ulcer prophylaxis. 9. Continue to encourage the patient to work hard at physical therapy and occupational therapy. 10. Continue Lexapro 20 mg daily. Job ID: [id number]
[2020-01-18] MEDS: Atorvastatin Calcium 10 MG TAB PO SCH (21:15)
[2020-01-18] MEDS: traZODone HCl 50 MG TAB PO SCH (21:15)
[2020-01-19] MEDS: Ciprofloxacin 500 MG TAB PO SCH ×2 (05:31→22:03)
[2020-01-19 06:20] LABS: #Eosinphils 0.3 thou/uL (0.0-0.7); #Lymphocytes 1.2 thou/uL (1.20-3.40); #Monocytes 0.7 thou/uL (0.11-0.59); #Neutrophils 4.2 thou/uL (1.40-6.50); %Basophils 0.6 % (0.0-1.0); %Eosinophils 4.3 % (0.0-10.0); %Lymphocytes 18.4 % (21.0-51.0); %Neutrophils 65.8 % (42.0-75.0); Hemoglobin 10.1 g/dL (12.0-16.0); Mean Platelet Volume 4.2 fL (7.4-10.4); Platelet Count 265 thou/uL (130-400); Red Blood Cell (RBC) Count 3.07 mill/uL (4.20-5.40); White Blood Cell (WBC) Count 6.5 thou/uL (4.8-10.8)
[2020-01-19 06:38] LABS: ALT (SGPT) 18 U/L (8-55); AST (SGOT) 24 U/L (5-34); Albumin 3.5 g/dL (3.4-4.8); Alkaline Phosphatase 109 U/L (40-110); Anion Gap 17 mmol/L (10-20); BUN (Urea Nitrogen) 35 mg/dL (9.8-20.1); Bilirubin, Total 0.3 mg/dL (0.2-1.2); Calc. Creatinine Clearance 44 mL/min (70-130); Calcium 9.9 mg/dL (7.8-10.44); Carbon Dioxide 28 mmol/L (23-31); Chloride 97 mmol/L (98-107); Estimated GFR-MDRD 28; Globulin 2.3 g/dL (2.4-3.5); Glucose 95 mg/dL (83-110); Potassium 4.7 mmol/L (3.5-5.1); Protein, Total 5.8 g/dL (6.0-8.3); Sodium 137 mmol/L (136-145)
[2020-01-19] MEDS: traMADol HCl 50 MG TAB PO PRN ×2 (08:48→22:17)
[2020-01-19] MEDS: Acetaminophen 500 MG TAB PO PRN (08:48)
[2020-01-19] MEDS: Ferrous Sulfate 325 MG TAB PO SCH (08:51)
[2020-01-19] MEDS: Multivitamin W/ Minerals 1 TAB PO SCH (08:52)
[2020-01-19] MEDS: Gabapentin 100 MG CAP PO SCH ×2 (08:52→22:05)
[2020-01-19] MEDS: Glimepiride 2 MG TAB PO SCH (08:54)
[2020-01-19] MEDS: Escitalopram Oxalate 20 mg Tablet PO SCH (08:54)
[2020-01-19] MEDS: Aspirin 81 mg Enteric Coated Tablet PO SCH ×2 (08:55→22:04)
[2020-01-19] MEDS: Losartan 25 MG TAB PO SCH (08:56)
[2020-01-19] MEDS: Meloxicam 7.5 MG TAB PO SCH (08:56)
[2020-01-19] MEDS: Loratadine 10 MG TAB PO SCH (08:56)
[2020-01-19] MEDS: Furosemide 40 MG TAB PO SCH ×2 (08:56→13:58)
[2020-01-19] MEDS: Polyethylene Glycol 3350 17 GM Packet PO SCH (08:57)
[2020-01-19] MEDS: Ubidecarenone 50 MG CAP PO SCH (08:57)
[2020-01-19] MEDS: ANORO INHALER INH SCH (09:50)
[2020-01-19] MEDS: Verapamil 80 MG TAB PO SCH (09:51)
[2020-01-19] MEDS: Insulin Regular 300 UNITS/3 ML VIAL SC PRN (11:38)
--- NOTE | 2020-01-19 21:27 | PRG ---
DATE OF SERVICE: 01/19/2020 SUBJECTIVE: Ms. Le is a well-developed, well-nourished 84-year-old white female, who fell at home. She had a right intertrochanteric hip fracture. She was taken to the surgical suite by Dr. Garcia. He performed her ORIF. Postoperatively, she did very well, was transferred to [facility] because she has very low pain tolerance and has no one to help her at home and is very weak. The patient states she did well yesterday and walked about 102 steps. She expects she can do better this week. I told her we are looking at discharge hopefully soon. OBJECTIVE: VITAL SIGNS: Today reveal blood pressure 129/60, pulse 79 to 98, respirations 18 to 20, O2 saturation 95% to 98% on room air, T-max 98.4. GENERAL: This is a well-developed, well-nourished, obese white female, in no apparent distress at this time. HEENT: Reveals normocephalic and nontraumatic cranium. Pupils equal, round, and reactive. Extraocular movements are intact. Nose and throat are slightly dry. NECK: Supple without masses, nodes, or bruits. CHEST: Clear to auscultation. No rales, rhonchi, or wheezes are heard. HEART: Reveals a regular rate and rhythm without murmurs, gallops, or rubs. ABDOMEN: Soft, nontender without organomegaly. Normal bowel sounds are noted in all 4 quadrants. No rebound or guarding is noted. : Deferred. EXTREMITIES: Reveal no clubbing, cyanosis, or edema. The patient's hip continues to do well. ASSESSMENT: 1. Right intertrochanteric hip fracture, status post open reduction and internal fixation done by Dr. Garcia. 2. Chronic obstructive pulmonary disease. 3. Congestive heart failure. 4. Hypertension. 5. Diabetes, type 2. 6. Degenerative joint disease. 7. Morbid obesity. 8. Generalized weakness. PLAN: 1. Continue to monitor the patient's blood pressure closely. 2. Continue to monitor the patient's diabetes with Accu-Cheks before meals and at bedtime. 3. Continue to monitor the patient for signs and symptoms of CHF. 4. Monitor the patient's respiratory status. 5. Continue present medications. 6. Decubitus precautions. 7. Stress ulcer precautions. 8. Continue Lexapro. 9. Encourage the patient to continue to work hard at physical therapy and occupational therapy. Job ID: [id number]
[2020-01-19] MEDS: Atorvastatin Calcium 10 MG TAB PO SCH (22:04)
[2020-01-19] MEDS: traZODone HCl 50 MG TAB PO SCH (22:05)
[2020-01-19] MEDS: Famotidine 20 MG TAB PO SCH (22:05)
[2020-01-19] MEDS: Ondansetron ODT 4 MG TAB PO PRN (22:06)
[2020-01-20] MEDS: Ciprofloxacin 500 MG TAB PO SCH ×2 (05:58→20:45)
[2020-01-20] MEDS ORDERED: Mag-Al Plus 1200 MG/1200 MG/120 MG/30 ML UDCUP PO SCH (06:15)
[2020-01-20] MEDS: Ondansetron ODT 4 MG TAB PO PRN ×2 (08:30→18:50)
[2020-01-20] MEDS: Glimepiride 2 MG TAB PO SCH (08:31)
[2020-01-20] MEDS: traMADol HCl 50 MG TAB PO PRN ×2 (08:31→20:46)
[2020-01-20] MEDS: Acetaminophen 500 MG TAB PO PRN ×2 (08:31→20:45)
[2020-01-20] MEDS: Losartan 25 MG TAB PO SCH (08:59)
[2020-01-20] MEDS: Ferrous Sulfate 325 MG TAB PO SCH (08:59)
[2020-01-20] MEDS: Ubidecarenone 50 MG CAP PO SCH (09:00)
[2020-01-20] MEDS: Verapamil 80 MG TAB PO SCH (09:01)
[2020-01-20] MEDS: Meloxicam 7.5 MG TAB PO SCH (09:02)
[2020-01-20] MEDS: Furosemide 40 MG TAB PO SCH ×2 (09:02→14:20)
[2020-01-20] MEDS: Gabapentin 100 MG CAP PO SCH ×2 (09:03→20:45)
[2020-01-20] MEDS: Escitalopram Oxalate 20 mg Tablet PO SCH (09:03)
[2020-01-20] MEDS: Loratadine 10 MG TAB PO SCH (09:03)
[2020-01-20] MEDS: Multivitamin W/ Minerals 1 TAB PO SCH (09:04)
[2020-01-20] MEDS: Polyethylene Glycol 3350 17 GM Packet PO SCH (09:32)
[2020-01-20] MEDS: Aspirin 81 mg Enteric Coated Tablet PO SCH ×2 (09:49→20:46)
[2020-01-20] MEDS: ANORO INHALER INH SCH (09:49)
--- NOTE | 2020-01-20 19:17 | PRG ---
DATE OF SERVICE: 01/20/2020 SUBJECTIVE: Ms. Le is an 84-year-old white female who fell at home. She had a resultant right intertrochanteric hip fracture and was taken to the surgical suite by Dr. Garcia. ORIF was done, and she was stabilized and transferred to [facility]. She is here for physical therapy and occupational therapy and was noted to have significant low pain tolerance and lives alone. She is actually progressing very well and when she gets over pain, she does better. She walked 101 steps today. I will discuss with Physical Therapy tomorrow about how she is progressing and get a tentative discharge date. OBJECTIVE: VITAL SIGNS: Today reveal blood pressure 129/60, pulse 84 to 102, respirations 20, O2 saturation 94% to 98% on room air, and T-max 98.4. GENERAL: A well-developed, well-nourished, obese white female, in no apparent distress at this time. HEENT: Reveals normocephalic and nontraumatic cranium. Pupils equally round and reactive. Extraocular movements are intact. Nose and throat are slightly dry. NECK: Supple without masses, nodes, or bruits. CHEST: Clear to auscultation. No rales, rhonchi, or wheezes are heard. HEART: Reveals a regular rate and rhythm without murmurs, gallops, or rubs. ABDOMEN: Soft, nontender without organomegaly. Normal bowel sounds are noted in all 4 quadrants. No rebound or guarding was noted. The patient has had significant indigestion and is requesting her omeprazole which she takes at home. We did have her on Protonix while she was here, but she developed a lot of diarrhea, so that had to be stopped. Her son did bring some omeprazole, we started. She is already feeling better. GENITOURINARY: Exam is deferred. EXTREMITIES: Reveal no clubbing, cyanosis, or edema. The patient's hip continues to slowly improve. ASSESSMENT: 1. Significant gastroesophageal reflux disease with reflux, now on her omeprazole from home. 2. Right intertrochanteric hip fracture, status post open reduction and internal fixation by Dr. Garcia. 3. Chronic obstructive pulmonary disease. 4. Congestive heart failure. 5. Hypertension. 6. Diabetes, type 2. 7. Degenerative joint disease. 8. Morbid obesity. 9. Generalized weakness. PLAN: 1. Continue omeprazole 40 mg daily. 2. Continue to monitor the patient's blood pressure closely. 3. Monitor the patient's diabetes with Accu-Cheks a.c. and at bedtime. 4. Continue to monitor the patient for signs and symptoms of CHF. 5. Continue to monitor the patient's respiratory status. 6. Monitor the patient for decubiti. 7. Continue present medications. 8. Stress ulcer prophylaxis. 9. Continue Lexapro. 10. Encourage the patient to continue work with PT and OT. Job ID: [id number]
[2020-01-20] MEDS: Atorvastatin Calcium 10 MG TAB PO SCH (20:46)
[2020-01-20] MEDS: Famotidine 20 MG TAB PO SCH (20:46)
[2020-01-20] MEDS: traZODone HCl 50 MG TAB PO SCH (20:46)
[2020-01-20] MEDS: Mag-Al Plus 1200 MG/1200 MG/120 MG/30 ML UDCUP PO PRN (20:51)
[2020-01-21] MEDS: Ciprofloxacin 500 MG TAB PO SCH ×2 (06:03→21:48)
[2020-01-21] MEDS: Losartan 25 MG TAB PO SCH (08:30)
[2020-01-21] MEDS: Verapamil 80 MG TAB PO SCH (08:30)
[2020-01-21] MEDS: Gabapentin 100 MG CAP PO SCH ×2 (08:31→21:48)
[2020-01-21] MEDS: Escitalopram Oxalate 20 mg Tablet PO SCH (08:31)
[2020-01-21] MEDS: Aspirin 81 mg Enteric Coated Tablet PO SCH ×2 (08:31→21:48)
[2020-01-21] MEDS: Glimepiride 2 MG TAB PO SCH (08:32)
[2020-01-21] MEDS: Multivitamin W/ Minerals 1 TAB PO SCH (08:32)
[2020-01-21] MEDS: Ferrous Sulfate 325 MG TAB PO SCH (08:32)
[2020-01-21] MEDS: Loratadine 10 MG TAB PO SCH (08:33)
[2020-01-21] MEDS: Meloxicam 7.5 MG TAB PO SCH (08:33)
[2020-01-21] MEDS: Polyethylene Glycol 3350 17 GM Packet PO SCH (08:34)
[2020-01-21] MEDS: Furosemide 40 MG TAB PO SCH ×2 (08:34→13:55)
[2020-01-21] MEDS: ANORO INHALER INH SCH (08:35)
[2020-01-21] MEDS: OMEPRAZOLE 20 MG PO SCH (08:35)
[2020-01-21] MEDS: Ubidecarenone 50 MG CAP PO SCH (08:39)
[2020-01-21] MEDS: Acetaminophen 500 MG TAB PO PRN ×2 (08:45→21:47)
[2020-01-21] MEDS: traMADol HCl 50 MG TAB PO PRN ×2 (08:45→21:47)
[2020-01-21] MEDS: Mag-Al Plus 1200 MG/1200 MG/120 MG/30 ML UDCUP PO PRN (08:47)
--- NOTE | 2020-01-21 21:03 | PRG ---
DATE OF SERVICE: 01/21/2020 SUBJECTIVE: Ms. Le is an 84-year-old white female, who fell at home and had a resultant right intertrochanteric hip fracture. She was taken to the surgical suite and had an ORIF done by Dr. Garcia. She was stabilized and transferred to [facility]. She is here for physical therapy and occupational therapy. She is actually doing very well and walked a total of 172 feet today with 2 rest breaks in between. She states her pain is still there, but is much improved. We are hoping to get her home next week. OBJECTIVE: VITAL SIGNS: Today reveal blood pressure this morning was elevated at 170/72, pulse 81, respirations 20, O2 saturation 94% on room air, T-max 97.7. GENERAL: This is a well-developed, well-nourished, obese, white female, who states she is doing well and better than she expected. HEENT: Reveals normocephalic and nontraumatic cranium. Pupils are equal, round, and reactive. Extraocular movements are intact. Nose and throat are slightly dry, but clear. NECK: Supple without masses, nodes, or bruits. CHEST: Clear to auscultation. No rales, rhonchi, or wheezes are heard. HEART: Reveals a regular rate and rhythm without murmurs, gallops, or rubs. ABDOMEN: Obese, soft, nontender without organomegaly. Normal bowel sounds are noted. No rebound or guarding is noted. The patient's indigestion has much improved and resolved. She is on her omeprazole from home. GENITOURINARY: Deferred. EXTREMITIES: Revealed no clubbing, cyanosis, or edema. The patient's hip has healed well with minimal redness. ASSESSMENT: 1. Hypertension, that typically is either high or low. 2. We will increase her losartan from 25 mg to 50 mg and see if that brings those high blood pressures down a little more. 3. Right intertrochanteric hip fracture, status post open reduction and internal fixation by Dr. Garcia. 4. Chronic obstructive pulmonary disease. 5. Congestive heart failure. 6. Hypertension. 7. Diabetes type 2. 8. Degenerative joint disease. 9. Morbid obesity. 10. Generalized weakness. PLAN: 1. Increase losartan from 25 mg to 50 mg daily. 2. Continue to monitor the patient's blood pressure closely. 3. Monitor the patient's diabetes with Accu-Cheks a.c. and at bedtime. 4. Monitor the patient's signs and symptoms of CHF. 5. Monitor the patient's respiratory status. 6. Continue present medications. 7. Continue omeprazole daily. 8. Stress ulcer prophylaxis. 9. Continue Lexapro. 10. Encourage the patient to work with PT and OT. Job ID: [id number]
[2020-01-21] MEDS: Famotidine 20 MG TAB PO SCH (21:48)
[2020-01-21] MEDS: Atorvastatin Calcium 10 MG TAB PO SCH (21:48)
[2020-01-21] MEDS: traZODone HCl 50 MG TAB PO SCH (21:48)
[2020-01-22] MEDS: Ciprofloxacin 500 MG TAB PO SCH ×2 (06:28→22:06)
[2020-01-22] MEDS: Losartan 25 MG TAB PO SCH (09:45)
[2020-01-22] MEDS: Ubidecarenone 50 MG CAP PO SCH (09:45)
[2020-01-22] MEDS: Meloxicam 7.5 MG TAB PO SCH (09:45)
[2020-01-22] MEDS: Loratadine 10 MG TAB PO SCH (09:46)
[2020-01-22] MEDS: Multivitamin W/ Minerals 1 TAB PO SCH (09:46)
[2020-01-22] MEDS: Ferrous Sulfate 325 MG TAB PO SCH (09:46)
[2020-01-22] MEDS: Verapamil 80 MG TAB PO SCH (09:46)
[2020-01-22] MEDS: Escitalopram Oxalate 20 mg Tablet PO SCH (09:46)
[2020-01-22] MEDS: Acetaminophen 500 MG TAB PO PRN ×2 (09:46→22:07)
[2020-01-22] MEDS: traMADol HCl 50 MG TAB PO PRN ×2 (09:46→22:06)
[2020-01-22] MEDS: Gabapentin 100 MG CAP PO SCH ×2 (09:46→22:08)
[2020-01-22] MEDS: Aspirin 81 mg Enteric Coated Tablet PO SCH ×2 (09:47→22:08)
[2020-01-22] MEDS: Furosemide 40 MG TAB PO SCH ×2 (09:47→13:45)
[2020-01-22] MEDS: OMEPRAZOLE 20 MG PO SCH (09:50)
[2020-01-22] MEDS: Glimepiride 2 MG TAB PO SCH (09:53)
[2020-01-22] MEDS: ANORO INHALER INH SCH (09:54)
[2020-01-22] MEDS: Polyethylene Glycol 3350 17 GM Packet PO SCH (18:42)
[2020-01-22] MEDS: Atorvastatin Calcium 10 MG TAB PO SCH (22:06)
[2020-01-22] MEDS: Famotidine 20 MG TAB PO SCH (22:08)
[2020-01-22] MEDS: traZODone HCl 50 MG TAB PO SCH (22:08)
[2020-01-23 04:45] LABS: Glucose POC Confirmation 42 mg/dl (83-110)
[2020-01-23] MEDS: Ciprofloxacin 500 MG TAB PO SCH ×2 (05:37→20:16)
[2020-01-23] MEDS: Verapamil 80 MG TAB PO SCH ×2 (07:36→20:19)
[2020-01-23] MEDS: Polyethylene Glycol 3350 17 GM Packet PO SCH (07:36)
[2020-01-23] MEDS: Mag-Al Plus 1200 MG/1200 MG/120 MG/30 ML UDCUP PO PRN ×2 (07:37→18:06)
[2020-01-23] MEDS: Losartan 25 MG TAB PO SCH (07:37)
[2020-01-23] MEDS: Multivitamin W/ Minerals 1 TAB PO SCH (07:37)
[2020-01-23] MEDS: Meloxicam 7.5 MG TAB PO SCH (07:38)
[2020-01-23] MEDS: Aspirin 81 mg Enteric Coated Tablet PO SCH ×2 (07:38→20:16)
[2020-01-23] MEDS: Furosemide 40 MG TAB PO SCH ×2 (07:38→14:00)
[2020-01-23] MEDS: Ferrous Sulfate 325 MG TAB PO SCH (07:38)
[2020-01-23] MEDS: Loratadine 10 MG TAB PO SCH (07:39)
[2020-01-23] MEDS: Ubidecarenone 50 MG CAP PO SCH (07:39)
[2020-01-23] MEDS: Escitalopram Oxalate 20 mg Tablet PO SCH (07:39)
[2020-01-23] MEDS: Gabapentin 100 MG CAP PO SCH ×2 (07:39→20:19)
[2020-01-23] MEDS: Glimepiride 2 MG TAB PO SCH ×2 (07:40→11:29)
[2020-01-23] MEDS: OMEPRAZOLE 20 MG PO SCH (07:41)
[2020-01-23] MEDS: ANORO INHALER INH SCH (07:41)
[2020-01-23] MEDS: Acetaminophen 500 MG TAB PO PRN ×2 (07:52→20:21)
[2020-01-23] MEDS: traMADol HCl 50 MG TAB PO PRN ×2 (07:53→20:20)
--- NOTE | 2020-01-23 09:35 | PRG ---
DATE OF SERVICE: 01/22/[address] Scott Lopez. SUBJECTIVE: The patient feels well, but states she has had persistent hypoglycemia last night and this morning despite taking her home medications of glimepiride 2 mg daily. She states she did not eat well last night, but did eat. She also states that she has continued to have fluctuating blood pressure elevated in the morning and low in the afternoon despite taking increased losartan 50 mg daily and verapamil 160 mg every morning. She is denying any shortness of breath or chest pain. OBJECTIVE: VITAL SIGNS: Blood pressure this morning is 183/81, temperature is 97.9, pulse 89, respirations 20, O2 sats 98% on room air. LUNGS: Clear. CARDIAC: Regular rhythm. ABDOMEN: Soft, nontender. SKIN/EXTREMITIES: No edema, clubbing, or cyanosis. Right lateral hip incision has healed. ASSESSMENT: 1. Labile hypertension. We will change verapamil to be given at night and continue losartan in the morning to hopefully decrease fluctuation. 2. Persistent hypoglycemia, on home dose of glimepiride and we will decrease to 1 mg daily and continue to monitor. 3. Open reduction and internal fixation of right hip fracture, healing well. 4. Chronic obstructive pulmonary disease, stable. 5. Congestive heart failure, stable. PLAN: 1. Decrease glimepiride to 1 mg every morning. 2. Change verapamil to 180 mg at night. Continue losartan 50 mg in the morning. 3. Continue to monitor vital signs closely. 4. Continue to stress adequate oral intake. Job ID: [id number]
[2020-01-23] MEDS: Atorvastatin Calcium 10 MG TAB PO SCH (20:17)
[2020-01-23] MEDS: Famotidine 20 MG TAB PO SCH (20:18)
[2020-01-23] MEDS: traZODone HCl 50 MG TAB PO SCH (20:19)
[2020-01-24] MEDS: Mag-Al Plus 1200 MG/1200 MG/120 MG/30 ML UDCUP PO PRN ×3 (08:20→17:57)
[2020-01-24] MEDS: Polyethylene Glycol 3350 17 GM Packet PO SCH (08:20)
[2020-01-24] MEDS: Ciprofloxacin 500 MG TAB PO SCH ×2 (08:21→21:40)
[2020-01-24] MEDS: Furosemide 40 MG TAB PO SCH ×2 (08:21→13:42)
[2020-01-24] MEDS: Glimepiride 2 MG TAB PO SCH (08:21)
[2020-01-24] MEDS: Multivitamin W/ Minerals 1 TAB PO SCH (08:21)
[2020-01-24] MEDS: Ubidecarenone 50 MG CAP PO SCH (08:21)
[2020-01-24] MEDS: Acetaminophen 500 MG TAB PO PRN ×2 (08:22→21:39)
[2020-01-24] MEDS: Ferrous Sulfate 325 MG TAB PO SCH (08:22)
[2020-01-24] MEDS: Meloxicam 7.5 MG TAB PO SCH (08:22)
[2020-01-24] MEDS: Aspirin 81 mg Enteric Coated Tablet PO SCH ×2 (08:23→21:40)
[2020-01-24] MEDS: Losartan 25 MG TAB PO SCH (08:23)
[2020-01-24] MEDS: Loratadine 10 MG TAB PO SCH (08:23)
[2020-01-24] MEDS: Gabapentin 100 MG CAP PO SCH ×2 (08:23→21:40)
[2020-01-24] MEDS: Escitalopram Oxalate 20 mg Tablet PO SCH (08:23)
[2020-01-24] MEDS: ANORO INHALER INH SCH (08:25)
[2020-01-24] MEDS: OMEPRAZOLE 20 MG PO SCH (08:25)
[2020-01-24] MEDS: traMADol HCl 50 MG TAB PO PRN ×2 (08:26→21:39)
[2020-01-24 18:12] VITALS: BMI 44.2
--- NOTE | 2020-01-24 19:54 | PRG ---
DATE OF SERVICE: 01/24/2020 SUBJECTIVE: The patient feels well, lying in bed with no headache, shortness of breath, or chest pain. OBJECTIVE: VITAL SIGNS: Her blood pressure is improved with blood pressure 140/65 this morning, O2 saturations 95% on room air, respirations 19, afebrile. Accu-Cheks have been stable from 93 to 149. MUSCULOSKELETAL: Right hip shows persistent but decreasing pain. SKIN/EXTREMITIES: No edema, clubbing, or cyanosis. ASSESSMENT: 1. Labile hypertension with some improvement with verapamil given at night, losartan in the morning. 2. Diabetes with hypoglycemia, improved, on decreased dose of glimepiride 1 mg daily. 3. Open reduction and internal fixation of right hip fracture, healing well. 4. Chronic obstructive pulmonary disease, stable. 5. Congestive heart failure, stable. PLAN: 1. Continue verapamil at night, losartan in the morning. 2. Continue lower dose of glimepiride. 3. Dr. Lopez back tonight. 4. Continue to monitor vital signs closely. 5. Continue PT/OT tomorrow. Job ID: [id number]
[2020-01-24] MEDS: traZODone HCl 50 MG TAB PO SCH (21:39)
[2020-01-24] MEDS: Atorvastatin Calcium 10 MG TAB PO SCH (21:40)
[2020-01-24] MEDS: Verapamil 80 MG TAB PO SCH (21:40)
[2020-01-24] MEDS: Famotidine 20 MG TAB PO SCH (21:41)
[2020-01-25] MEDS: Meloxicam 7.5 MG TAB PO SCH (08:24)
[2020-01-25] MEDS: Aspirin 81 mg Enteric Coated Tablet PO SCH ×2 (08:24→21:23)
[2020-01-25] MEDS: Polyethylene Glycol 3350 17 GM Packet PO SCH (08:24)
[2020-01-25] MEDS: Gabapentin 100 MG CAP PO SCH ×2 (08:24→21:23)
[2020-01-25] MEDS: Ferrous Sulfate 325 MG TAB PO SCH (08:25)
[2020-01-25] MEDS: Glimepiride 2 MG TAB PO SCH (08:25)
[2020-01-25] MEDS: Multivitamin W/ Minerals 1 TAB PO SCH (08:25)
[2020-01-25] MEDS: Escitalopram Oxalate 20 mg Tablet PO SCH (08:25)
[2020-01-25] MEDS: Ubidecarenone 50 MG CAP PO SCH (08:27)
[2020-01-25] MEDS: Furosemide 40 MG TAB PO SCH ×2 (08:28→14:58)
[2020-01-25] MEDS: Losartan 25 MG TAB PO SCH (08:28)
[2020-01-25] MEDS: Loratadine 10 MG TAB PO SCH (08:31)
[2020-01-25] MEDS: ANORO INHALER INH SCH (08:40)
[2020-01-25] MEDS: OMEPRAZOLE 20 MG PO SCH (08:44)
[2020-01-25] MEDS: Acetaminophen 500 MG TAB PO PRN ×2 (09:05→21:23)
[2020-01-25] MEDS: traMADol HCl 50 MG TAB PO PRN ×2 (09:05→21:22)
--- NOTE | 2020-01-25 20:08 | PRG ---
DATE OF SERVICE: 01/25/2020 SUBJECTIVE: Ms. Le is a well-developed, well-nourished, pleasant, 84-year-old, white female, who unfortunately fell at home and had a right intertrochanteric hip fracture. She was taken to the surgical suite and had ORIF done by Dr. Garcia. She was stabilized and transferred to [facility]. She is here for PT and OT. She has actually had quite a bit of pain, and it has been very slow healing, but is much improved. We hope to get her home Saturday. OBJECTIVE: VITAL SIGNS: Today reveal blood pressure this morning was 124/58, pulse 84 to 90, respirations 18, O2 saturation 95% to 96% on room air, T-max 97.3. GENERAL: This is a well-developed, well-nourished, morbidly obese, white female, in no apparent distress at this time. HEENT: Reveal normocephalic and nontraumatic cranium. Pupils are equally round and reactive. Extraocular movements are intact. Nose and throat are clear. NECK: Supple without masses, nodes, or bruits. CHEST: Clear to auscultation. No rales, rhonchi, wheezes, or cough is noted. HEART: Reveals a regular rate and rhythm without murmurs, gallops, or rubs. ABDOMEN: Obese, soft, and nontender without organomegaly. Normal bowel sounds are noted. No rebound or guarding is noted. : Deferred. EXTREMITIES: Reveal right hip has continued pain, as do the patient's knee and toe at times. EXTREMITIES: Reveal no clubbing, cyanosis, or edema. ASSESSMENT: 1. Hypertension, which is labile at times. 2. Open reduction and internal fixation of the right hip. 3. Chronic obstructive pulmonary disease. 4. Congestive heart failure. 5. Morbid obesity. 6. Diabetes, type 2. 7. Degenerative joint disease. 8. Generalized weakness. PLAN: 1. Losartan had been increased from 25 to 50 mg. 2. Continue monitoring the patient's blood pressure. 3. Continue to monitor the patient's diabetes with Accu-Cheks a.c. and at bedtime. 4. Monitor the patient for signs and symptoms of CHF. 5. Monitor the patient's respiratory status. 6. Continue omeprazole daily. 7. Stress ulcer prophylaxis. 8. Continue Lexapro. 9. Encourage the patient to continue walking with PT and OT. Job ID: [id number]
[2020-01-25] MEDS: Verapamil 80 MG TAB PO SCH (21:22)
[2020-01-25] MEDS: traZODone HCl 50 MG TAB PO SCH (21:22)
[2020-01-25] MEDS: Atorvastatin Calcium 10 MG TAB PO SCH (21:23)
[2020-01-25] MEDS: Famotidine 20 MG TAB PO SCH (21:23)
[2020-01-26] MEDS: Ferrous Sulfate 325 MG TAB PO SCH (08:42)
[2020-01-26] MEDS: Gabapentin 100 MG CAP PO SCH ×2 (08:42→21:04)
[2020-01-26] MEDS: Multivitamin W/ Minerals 1 TAB PO SCH (08:42)
[2020-01-26] MEDS: Furosemide 40 MG TAB PO SCH ×2 (08:43→14:22)
[2020-01-26] MEDS: Ubidecarenone 50 MG CAP PO SCH (08:43)
[2020-01-26] MEDS: Glimepiride 2 MG TAB PO SCH (08:43)
[2020-01-26] MEDS: Meloxicam 7.5 MG TAB PO SCH (08:44)
[2020-01-26] MEDS: Losartan 25 MG TAB PO SCH (08:44)
[2020-01-26] MEDS: Loratadine 10 MG TAB PO SCH (08:44)
[2020-01-26] MEDS: Escitalopram Oxalate 20 mg Tablet PO SCH (08:44)
[2020-01-26] MEDS: Acetaminophen 500 MG TAB PO PRN ×2 (08:45→21:04)
[2020-01-26] MEDS: traMADol HCl 50 MG TAB PO PRN ×2 (08:46→21:03)
[2020-01-26] MEDS: ANORO INHALER INH SCH (08:47)
[2020-01-26] MEDS: OMEPRAZOLE 20 MG PO SCH (08:51)
[2020-01-26] MEDS: Aspirin 81 mg Enteric Coated Tablet PO SCH ×2 (08:51→21:04)
[2020-01-26] MEDS: Polyethylene Glycol 3350 17 GM Packet PO SCH (08:51)
--- NOTE | 2020-01-26 11:12 | PRG ---
DATE OF SERVICE: 01/26/2020 SUBJECTIVE: Ms. Le is a very pleasant 84-year-old white female, who unfortunately fell at home, had a right intertrochanteric hip fracture. She was taken to surgical suite, had ORIF done by Dr. Garcia. She was stabilized and transferred to [facility]. She is here for PT and OT. She has actually had quite a bit of pain and has had slow healing, but continues to slowly improve. Our plans to have her discharged on Saturday afternoon. She has a CBC and CMP scheduled for today. OBJECTIVE: VITAL SIGNS: Today reveal blood pressure this morning 127/70, pulse 72 to 88, respirations 20, O2 saturation 93% to 96% on room air, T-max 97.8. GENERAL: On physical exam, this is a well-developed, well-nourished, very pleasant 84-year-old white female, seen coming back from physical therapy. We did discuss with Physical Therapy. She will be ready to go home with Physical Therapy. She has been dismissed from occupational therapy and has been doing well. She will need to have home health coming probably about twice a week. HEENT: Normocephalic and nontraumatic cranium. Pupils are equal, round, and reactive. Extraocular movements are intact. Nose and throat are slightly clear. NECK: Supple without masses, nodes, or bruits. CHEST: Clear to auscultation. No rales, rhonchi, wheezes, or cough is noted. HEART: Reveals a regular rate and rhythm without murmurs, gallops, or rubs. ABDOMEN: Obese, soft, nontender without organomegaly. Normal bowel sounds are noted. No rebound or guarding is noted. GENITOURINARY: Exam is deferred. EXTREMITIES: Reveal right hip continued pain, but much improved. The patient also has pain in the knee and the toe occasionally. EXTREMITIES: Reveal no clubbing, cyanosis, or edema. ASSESSMENT: 1. Labile hypertension. 2. Open reduction and internal fixation of the right hip. 3. Chronic obstructive pulmonary disease. 4. Congestive heart failure. 5. Morbid obesity. 6. Diabetes type 2, stable. 7. Degenerative joint disease. 8. Generalized weakness. PLAN: 1. The patient's losartan has been increased from 25 to 50 and blood pressure is slightly better. 2. Continue to monitor the patient's blood pressure. 3. Continue to monitor the patient's diabetes with Accu-Cheks a.c. and at bedtime. 4. Monitor the patient for signs and symptoms of CHF. 5. Monitor the patient's respiratory status. 6. Continue omeprazole daily. 7. Stress ulcer prophylaxis. 8. Continue Lexapro. 9. Encourage the patient to continue to work with PT and OT. Job ID: [id number]
[2020-01-26] MEDS: Atorvastatin Calcium 10 MG TAB PO SCH (21:04)
[2020-01-26] MEDS: traZODone HCl 50 MG TAB PO SCH (21:04)
[2020-01-26] MEDS: Verapamil 80 MG TAB PO SCH (21:04)
[2020-01-26] MEDS: Famotidine 20 MG TAB PO SCH (21:04)
[2020-01-27 05:25] LABS: #Basophils 0.1 thou/uL (0.0-0.2); #Eosinphils 0.2 thou/uL (0.0-0.7); #Lymphocytes 1.4 thou/uL (1.20-3.40); #Monocytes 0.8 thou/uL (0.11-0.59); #Neutrophils 5.5 thou/uL (1.40-6.50); %Basophils 0.8 % (0.0-1.0); %Eosinophils 2.5 % (0.0-10.0); %Lymphocytes 17.6 % (21.0-51.0); %Monocytes 10.1 % (0.0-10.0); Mean Corpuscular HGB CONC 33.1 g/dL (32.0-36.0); Mean Corpuscular Hemoglobin 32.5 pg (27.0-31.0); Mean Corpuscular Volume 98.4 fL (78.0-98.0); Mean Platelet Volume 4.6 fL (7.4-10.4); Platelet Count 302 thou/uL (130-400); RBC Distribution Width 12.6 % (11.5-14.5); Red Blood Cell (RBC) Count 2.78 mill/uL (4.20-5.40); White Blood Cell (WBC) Count 7.9 thou/uL (4.8-10.8)
[2020-01-27 05:38] LABS: ALT (SGPT) 14 U/L (8-55); AST (SGOT) 28 U/L (5-34); Albumin 3.2 g/dL (3.4-4.8); Alkaline Phosphatase 90 U/L (40-110); Anion Gap 17 mmol/L (10-20); BUN (Urea Nitrogen) 46 mg/dL (9.8-20.1); Bilirubin, Total 0.3 mg/dL (0.2-1.2); Calc. Creatinine Clearance 37 mL/min (70-130); Calcium 9.3 mg/dL (7.8-10.44); Carbon Dioxide 26 mmol/L (23-31); Chloride 96 mmol/L (98-107); Estimated GFR-MDRD 23; Globulin 2.4 g/dL (2.4-3.5); Glucose 87 mg/dL (83-110); Potassium 4.7 mmol/L (3.5-5.1); Protein, Total 5.6 g/dL (6.0-8.3); Sodium 134 mmol/L (136-145)
[2020-01-27] MEDS: Glimepiride 2 MG TAB PO SCH (08:44)
[2020-01-27] MEDS: Ferrous Sulfate 325 MG TAB PO SCH (08:44)
[2020-01-27] MEDS: Aspirin 81 mg Enteric Coated Tablet PO SCH ×2 (08:51→20:23)
[2020-01-27] MEDS: Losartan 25 MG TAB PO SCH (08:52)
[2020-01-27] MEDS: Gabapentin 100 MG CAP PO SCH ×2 (08:52→20:24)
[2020-01-27] MEDS: Loratadine 10 MG TAB PO SCH (08:52)
[2020-01-27] MEDS: Escitalopram Oxalate 20 mg Tablet PO SCH (08:52)
[2020-01-27] MEDS: Meloxicam 7.5 MG TAB PO SCH (08:53)
[2020-01-27] MEDS: Multivitamin W/ Minerals 1 TAB PO SCH (08:53)
[2020-01-27] MEDS: Ubidecarenone 50 MG CAP PO SCH (08:53)
[2020-01-27] MEDS: Furosemide 40 MG TAB PO SCH ×2 (08:53→14:17)
[2020-01-27] MEDS: ANORO INHALER INH SCH (08:55)
[2020-01-27] MEDS: OMEPRAZOLE 20 MG PO SCH (08:57)
[2020-01-27] MEDS: Polyethylene Glycol 3350 17 GM Packet PO SCH (08:58)
[2020-01-27] MEDS: Acetaminophen 500 MG TAB PO PRN ×2 (08:59→20:25)
[2020-01-27] MEDS: traMADol HCl 50 MG TAB PO PRN (09:00)
--- NOTE | 2020-01-27 19:04 | PRG ---
DATE OF SERVICE: 01/27/2020 SUBJECTIVE: This patient is an 84-year-old white female, who fell at home with a resultant right intertrochanteric hip fracture. She was taken to surgical suite, had ORIF done by Dr. Garcia. She was stabilized and transferred to [facility] for PT and OT. She is actually doing very well and will be ready for discharge on Saturday. The patient states she has no concerns or complaints at this time. OBJECTIVE: VITAL SIGNS: Today reveal blood pressure pending from today. Pulse 76 to 80, respirations 18 to 20, O2 saturation 95% to 98% on room air, and T-max 97.2. GENERAL: This is a well-developed, well-nourished, morbidly obese white female, in no apparent distress at this time. HEENT: Reveals normocephalic and nontraumatic cranium. Pupils are equal, round, and reactive. Extraocular movements are intact. Nose and throat are slightly dry, but clear. NECK: Supple without masses, nodes, or bruits. CHEST: Clear to auscultation. No rales, rhonchi, wheezes, or cough is heard. HEART: Reveals a regular rate and rhythm without murmurs, gallops, or rubs. ABDOMEN: Obese, soft, and nontender without organomegaly. Normal bowel sounds are noted in all 4 quadrants. No rebound or guarding is noted. : Deferred. EXTREMITIES: Reveal no clubbing or cyanosis. No edema. Right hip continues to have some pain, but is much improved today. The patient walked much better today and states she is ready to go home. ASSESSMENT: 1. Labile hypertension. 2. Open reduction and internal fixation of the right hip by Dr. Garcia. 3. Chronic obstructive pulmonary disease. 4. Congestive heart failure. 5. Morbid obesity. 6. Diabetes, type 2. 7. Degenerative joint disease. 8. Generalized weakness. PLAN: 1. The patient's losartan was increased to 50 mg, slightly better. 2. Continue to monitor the patient's blood pressure closely. 3. Continue to monitor the patient's diabetes with Accu-Cheks a.c. and at bedtime. 4. Monitor the patient for signs and symptoms of CHF. 5. Monitor the patient's respiratory status. 6. Continue omeprazole daily. 7. Stress ulcer prophylaxis. 8. Continue Lexapro. 9. Encourage the patient to work with PT and OT when she goes home. Job ID: [id number]
[2020-01-27] MEDS: traZODone HCl 50 MG TAB PO SCH (20:24)
[2020-01-27] MEDS: Famotidine 20 MG TAB PO SCH (20:24)
[2020-01-27] MEDS: Atorvastatin Calcium 10 MG TAB PO SCH (20:24)
[2020-01-27] MEDS: Verapamil 80 MG TAB PO SCH (20:25)
[2020-01-28] MEDS: Losartan 25 MG TAB PO SCH (08:42)
[2020-01-28] MEDS: Meloxicam 7.5 MG TAB PO SCH (08:42)
[2020-01-28] MEDS: Ubidecarenone 50 MG CAP PO SCH (08:42)
[2020-01-28] MEDS: Polyethylene Glycol 3350 17 GM Packet PO SCH (08:42)
[2020-01-28] MEDS: Glimepiride 2 MG TAB PO SCH (08:43)
[2020-01-28] MEDS: Escitalopram Oxalate 20 mg Tablet PO SCH (08:43)
[2020-01-28] MEDS: Multivitamin W/ Minerals 1 TAB PO SCH (08:44)
[2020-01-28] MEDS: Gabapentin 100 MG CAP PO SCH ×2 (08:44→20:58)
[2020-01-28] MEDS: Acetaminophen 500 MG TAB PO PRN ×2 (08:44→20:58)
[2020-01-28] MEDS: Ferrous Sulfate 325 MG TAB PO SCH (08:44)
[2020-01-28] MEDS: Furosemide 40 MG TAB PO SCH ×2 (08:44→14:31)
[2020-01-28] MEDS: Loratadine 10 MG TAB PO SCH (08:44)
[2020-01-28] MEDS: ANORO INHALER INH SCH (08:45)
[2020-01-28] MEDS: Aspirin 81 mg Enteric Coated Tablet PO SCH ×2 (08:45→20:59)
[2020-01-28] MEDS: OMEPRAZOLE 20 MG PO SCH (08:47)
--- NOTE | 2020-01-28 17:22 | PRG ---
DATE OF SERVICE: 01/28/2020 SUBJECTIVE: Ms. Le is an 84-year-old white female, who unfortunately fell at home, had a right intertrochanteric hip fracture. She was taken to surgical suite by Dr. Garcia and had an ORIF done. She eventually was stabilized and transferred to [facility] since she is a slow healer, has a poor tolerance to pain, is extremely weak. She has actually done well, although it has taken her a long time to get to this point. She is ready for discharge at this time. OBJECTIVE: VITAL SIGNS: Today reveal blood pressure 145/74, pulse 79 to 89, respirations 18 to 20, O2 sat 96% to 93% on room air, and T-max 97.8. GENERAL: This is a well-developed, well-nourished, pleasant, somewhat obese white female, in no apparent distress at this time. HEENT: Normocephalic and nontraumatic cranium. Pupils are equally round and reactive. Extraocular movements are intact. Nose and throat are slightly dry. NECK: Supple without masses, nodes or bruits. CHEST: Clear to auscultation. No rales, rhonchi, wheezes, or cough is heard. HEART: Regular rate and rhythm without murmurs, gallops or rubs. ABDOMEN: Obese, soft, and nontender without organomegaly. Normal bowel sounds are noted in all 4 quadrants. No rebound or guarding is noted. : Deferred. EXTREMITIES: No clubbing, cyanosis or edema. The patient continues to walk much better and has much less pain. She states she is ready to go home. ASSESSMENT: 1. Labile hypertension. 2. Open reduction and internal fixation of the right hip by Dr. Garcia. 3. Chronic obstructive pulmonary disease. 4. Diabetes type 2. 5. Congestive heart failure. 6. Morbid obesity. 7. Degenerative joint disease. 8. Generalized weakness. PLAN: 1. The patient did require her losartan to be increased to 100 mg daily. 2. Continue to monitor the patient's blood pressure closely. 3. Monitor the patient's diabetes with Accu-Cheks a.c. and at bedtime. 4. Monitor the patient for signs and symptoms of CHF. 5. Monitor the patient's respiratory status. 6. Continue omeprazole daily. 7. Stress ulcer prophylaxis. 8. Continue Lexapro. 9. Encourage the patient to work for PT and OT when she gets home. Job ID: [id number]
[2020-01-28] MEDS: Famotidine 20 MG TAB PO SCH (20:58)
[2020-01-28] MEDS: traZODone HCl 50 MG TAB PO SCH (20:58)
[2020-01-28] MEDS: Verapamil 80 MG TAB PO SCH (20:58)
[2020-01-28] MEDS: Atorvastatin Calcium 10 MG TAB PO SCH (20:58)
[2020-01-29] MEDS: Ubidecarenone 50 MG CAP PO SCH (08:35)
[2020-01-29] MEDS: Glimepiride 2 MG TAB PO SCH (08:35)
[2020-01-29] MEDS: Meloxicam 7.5 MG TAB PO SCH (08:37)
[2020-01-29] MEDS: Gabapentin 100 MG CAP PO SCH (08:37)
[2020-01-29] MEDS: Acetaminophen 500 MG TAB PO PRN (08:37)
[2020-01-29] MEDS: Ferrous Sulfate 325 MG TAB PO SCH (08:38)
[2020-01-29] MEDS: Multivitamin W/ Minerals 1 TAB PO SCH (08:38)
[2020-01-29] MEDS: Furosemide 40 MG TAB PO SCH ×2 (08:39→13:20)
[2020-01-29] MEDS: Loratadine 10 MG TAB PO SCH (08:39)
[2020-01-29] MEDS: Aspirin 81 mg Enteric Coated Tablet PO SCH (08:39)
[2020-01-29] MEDS: ANORO INHALER INH SCH (08:43)
[2020-01-29] MEDS: OMEPRAZOLE 20 MG PO SCH (08:46)
[2020-01-29] MEDS: Escitalopram Oxalate 20 mg Tablet PO SCH (08:48)
[2020-01-29] MEDS ORDERED: Losartan 25 MG TAB PO SCH (09:00)
[2020-01-29] MEDS: Polyethylene Glycol 3350 17 GM Packet PO SCH (09:33)
[2020-01-29 17:13] VITALS: BP 134/88; TEMP 97.3
--- NOTE | 2020-01-30 01:14 | DIS ---
DATE OF ADMISSION: 12/25/2019 DATE OF DISCHARGE: 01/29/2020 HOSPITAL COURSE: Ms. Le is an 84-year-old white female, who fell at home. She sustained a right intertrochanteric hip fracture. Taken to surgical suite by Dr. Garcia and had an ORIF done. Eventually, she was stabilized and transferred to [facility] because of increased pain, increased weakness, and because she lives alone. She has actually done very well, is now walking with her walker with much better balance, although she continues to have some pain. She has reached maximum medical benefit and is ready for discharge. DISCHARGE MEDICATIONS: Include the followin. Tylenol 500 mg to 1000 mg q.8 hours, not to exceed 3000 mg a day. 2. Albuterol or Ventolin inhaler two puffs q.4 hours p.r.n. 3. Anoro inhaler one puff each day. 4. Aspirin 81 mg a day. 5. Simvastatin 20 mg every evening. 6. CoQ10 of 50 mg daily. 7. Lexapro which is a new medication. 8. Escitalopram 20 mg each morning. 9. Iron pill, which is ferrous sulfate 325 mg each morning with food. 10. Lasix 40 mg two times a day. 11. Glimepiride 1 mg each morning. 12. Loratadine 10 mg daily. 13. New medication losartan 100 mg each morning. The patient has been taking 25 mg at home, a new prescription but sent to [facility]. 14. Meloxicam 15 mg daily. 15. Omeprazole 20 mg daily, which the patient takes of her home medication. 16. MiraLAX 17 g if needed. 17. Trazodone 50 mg at bedtime. 18. Verapamil 160 mg every evening. 19. Tramadol one with Tylenol p.r.n. 20. Multivitamin daily. 21. Stool softener daily. OBJECTIVE: VITAL SIGNS: Today reveal blood pressure early this morning 153/73, pulse 82 to 89, respirations 20, O2 saturation 94% to 97% on room air, and T-max 96.5. GENERAL: This is a well-developed, well-nourished, very pleasant 84-year-old white female, in no apparent distress at this time. HEENT: Normocephalic and nontraumatic. Cranium; pupils are equally round and reactive. Extraocular movements are intact. Nose and throat are slightly dry. NECK: Supple without masses, nodes, or bruits. CHEST: Clear to auscultation. No rales, rhonchi, wheezes, or cough is heard. HEART: Reveals a regular rate and rhythm without murmurs, gallops, or rubs. ABDOMEN: Soft, nontender without organomegaly. Normal bowel sounds are noted in all 4 quadrants. No rebound or guarding is noted. : Deferred. EXTREMITIES: Reveal no clubbing, cyanosis, or edema. The patient continues to walk much better and much less pain. She is ready for home. ASSESSMENT: 1. Labile hypertension. 2. Open reduction and internal fixation of the right hip by Dr. Garcia. 3. Chronic obstructive pulmonary disease. 4. Diabetes type 2. 5. Congestive heart failure. 6. Morbid obesity. 7. Degenerative joint disease. 8. Generalized weakness. PLAN: 1. The patient's losartan has been increased from 25 mg to 100 mg a day. 2. Continue to monitor the patient's blood pressure at home. 3. Monitor the patient's diabetes with Accu-Cheks before meals and at bedtime at home. 4. Monitor the patient for signs and symptoms of CHF. 5. Monitor the patient's respiratory status. 6. Continue omeprazole which is the patient's medicine at home. 7. Stress ulcer prophylaxis. 8. Continue Lexapro 20 mg daily. 9. Encourage the patient to continue physical therapy at home. 10. The patient is ready for discharge this evening. 11. The patient's escitalopram 20 mg daily, losartan 100 mg daily, and tramadol have all been sent to [facility]. Job ID: [id number]
--- NOTE | 2020-02-01 07:46 | PQF ---
Mimi Sparkle Montgomery Donnie CLANCY MD [id number] CLINICAL DOCUMENTATION CLARIFICATION FORM: POST DISCHARGE Addendum to original discharge summary date: ____ Late entry note date: __ DATE: 02/01/2020 ATTN: Donnie CLANCY MD Please exercise your independent, professional judgment in responding to the clarification form. Clinical indicators are provided on the bottom of this form for your review Please check appropriate box(s): HEART FAILURE: A. TYPE: [ ] Systolic / HFrEF [ ] Diastolic / HFpEF [ ] Combined Systolic / Diastolic B. ACUITY [ ] Acute [ ] Acute on Chronic [ ] Chronic [ ] Other diagnosis [ ] Unable to determine For continuity of documentation, please document condition throughout progress notes and discharge summary. Thank You. CLINICAL INDICATORS - SIGNS / SYMPTOMS / LABS - Congestive heart failure- DS, 01/29, Donnie CLANCY MD - Labile hypertension- DS, 01/29, Donnie CLANCY MD - BP:107/57L on 01/06, 94/46L on 01/21, 124/58L on 01/25- Laboratory report - she has mild dyspnea on exertion- H&P, 12/25, Bean James MD RISKS: - PMH: hypertension- H&P, 12/25, Bean James MD TREATMENTS: - Monitor for patient signs and symptoms of CHF- DS, 01/29, Donnie CLANCY MD - Furosemide.40mg- H&P, 12/25, Bean James MD (This form is maintained as a part of the permanent medical record) 2014 [employer] All Rights Reserved [email or web address]
== END 2020-01-29 18:29 | disposition home health service (06) | DRG 560 ==
LOC: NAV ACUTE 17:31
PROVIDERS: ADMIT Internal Medicine; ATTEND Internal Medicine
DX: S72.141D Displaced intertrochanteric fracture of right femur, subsequent encounter for closed fracture with routine healing (principal); I13.0 Hypertensive heart and chronic kidney disease with heart failure and stage 1 through stage 4 chronic kidney disease, or unspecified chronic kidney disease; Z68.41 Body mass index [BMI] 40.0-44.9, adult; N18.9 Chronic kidney disease, unspecified; R49.0 Dysphonia; I50.9 Heart failure, unspecified; E78.5 Hyperlipidemia, unspecified; E11.22 Type 2 diabetes mellitus with diabetic chronic kidney disease; J44.9 Chronic obstructive pulmonary disease, unspecified; K21.9 Gastro-esophageal reflux disease without esophagitis; R53.81 Other malaise; Z96.651 Presence of right artificial knee joint; M19.90 Unspecified osteoarthritis, unspecified site; F41.9 Anxiety disorder, unspecified; F32.9 Major depressive disorder, single episode, unspecified; E11.649 Type 2 diabetes mellitus with hypoglycemia without coma; E66.01 Morbid (severe) obesity due to excess calories; Z98.49 Cataract extraction status, unspecified eye; Z90.49 Acquired absence of other specified parts of digestive tract; Z09 Encounter for follow-up examination after completed treatment for conditions other than malignant neoplasm; Z79.01 Long term (current) use of anticoagulants; Z95.2 Presence of prosthetic heart valve
CPT/HCPCS: 36415; 36416; 36430; 80048; 80053; 82274; 85025; 86850; 86900; 86901; 87070; 87077; 87186; 87205; J1610; J1815; J7512; J7620; P9016; Q0162

== ENCOUNTER 2024-06-10 01:04 | Emergency (ER) | payer MEDICARE ==
[2024-06-10] MEDS ORDERED: Bacitracin 1 PK ONE (02:12)
[2024-06-10] MEDS ORDERED: Boostrix 0.5 ML (Tdap) VIAL (>/=7 yrs of age) ONE (02:13)
== END 2024-06-10 10:54 | disposition home or self-care (01) ==
LOC: NAV ERS 01:04
DX: S51.011A Laceration without foreign body of right elbow, initial encounter (principal); E11.9 Type 2 diabetes mellitus without complications; I10 Essential (primary) hypertension; J44.9 Chronic obstructive pulmonary disease, unspecified; Z79.899 Other long term (current) drug therapy; W01.0XXA Fall on same level from slipping, tripping and stumbling without subsequent striking against object, initial encounter
CPT/HCPCS: 90471; 90715